=== PATIENT | female | born 1950 | race Caucasian/White ===

== ENCOUNTER 2020-06-22 09:36 | Outpatient (REF) | payer MEDICARE, SELFPAY | END 2020-06-22 09:37 | disposition home or self-care (01) | LOC: HO.LAB 09:36 | PROVIDERS: Visit Provider Internal Medicine | DX: Z20.828 Contact with and (suspected) exposure to other viral communicable diseases (principal) | CPT/HCPCS: C9803; U0003 ==

== ENCOUNTER → 2020-07-02 13:27 | Outpatient (BNVA) | payer MEDICARE, SELFPAY | PROVIDERS: PCP Internal Medicine; Visit Provider Hospitalist | DX: J40 Bronchitis, not specified as acute or chronic (principal); Z79.51 Long term (current) use of inhaled steroids | CPT/HCPCS: 99212 ==

== ENCOUNTER 2020-08-13 09:45 | Outpatient (REF) | payer MEDICARE, SELFPAY | END 2020-08-13 09:46 | disposition home or self-care (01) | LOC: HO.LAB 09:45 | PROVIDERS: Visit Provider Internal Medicine | DX: Z20.822 Contact with and (suspected) exposure to COVID-19 (principal) | CPT/HCPCS: 36415; C9803; U0003 ==

== ENCOUNTER 2020-09-19 10:23 | Outpatient (REF) | payer MEDICARE, SELFPAY ==
--- NOTE | ~2020-09-19 | XR_ITS ---
EXAMINATION: XR CHEST CLINICAL INFORMATION: Bronchitis. COMPARISON: None TECHNIQUE: 2 views of the chest were obtained. FINDINGS: Kyphotic positioning and low lung volumes limit evaluation. The lungs are clear. The heart and mediastinal structures are unremarkable. Surgical clips overlie the left axilla. XR/XR chest 2V IMPRESSION: No acute cardiopulmonary process.
[2020-09-19 12:39] LABS: MANUAL DIFF FLAG NO
[2020-09-19 12:42] LABS: Basophils Absolute Auto 0.1 X10*3/uL (0.0-0.2); Basophils Percent Auto 1.3 % (0-2); Eosinophils Absolute Auto 0.2 X10*3/uL (0.0-0.4); Eosinophils Percent Auto 2.6 % (0-4); Hematocrit 48.2 % (37-47); Hemoglobin 15.2 g/dl (12.0-16.0); Imm Gran Abs Auto 0.02 X10*3/uL (0.00-0.03); Imm Gran Pct Auto 0.3 % (0.0-0.4); Lymphocytes Absolute Auto 1.3 X10*3/uL (1.2-4.9); Lymphocytes Percent Auto 20.8 % (20-40); Mean Corpuscular HGB Conc 31.5 g/dl (31.0-35.0); Mean Corpuscular Hemoglobin 29.4 pg (27.0-33.0); Mean Corpuscular Volume 93.2 fL (80-98); Mean Platelet Volume 11.6 fL (9.4-12.3); Monocytes Absolute Auto 0.5 X10*3/uL (0.1-1.2); Monocytes Percent Auto 8.7 % (2-11); Neutrophils Absolute Auto 4.1 X10*3/uL (2.0-8.3); Neutrophils Percent Auto 66.3 % (45-73); Platelet Count 284 X10*3/uL (160-400); Red Blood Count 5.17 X10*6/uL (4.20-5.50); Red Cell Distribution Width 14.9 % (11.0-16.0); White Blood Count 6.2 X10*3/uL (4.8-10.8)
[2020-09-19 13:25] LABS: B Type Natriuretic Peptide 62 pg/mL (<100)
[2020-09-19 13:26] LABS: Anion Gap 14 (12-20); Blood Urea Nitrogen 20 mg/dL (9-16); Calcium 9.6 mg/dL (8.4-10.2); Carbon Dioxide 31 mmol/L (22-29); Chloride 103 mmol/L (96-108); Estimated Glomerular Filt Rate > 60; Glucose Random 96 mg/dL (60-115); Potassium 4.1 mmol/L (3.3-5.1); Sodium 144 mmol/L (135-145)
[2020-09-19 14:21] LABS: Erythrocyte Sedimentation Rate 7 MM/HR (0-20)
== END 2020-09-19 10:24 | disposition home or self-care (01) ==
LOC: HO.LAB 10:23
PROVIDERS: PCP Internal Medicine; Visit Provider Hospitalist
DX: J45.41 Moderate persistent asthma with (acute) exacerbation (principal); R60.0 Localized edema; R13.10 Dysphagia, unspecified; Z79.899 Other long term (current) drug therapy
CPT/HCPCS: 36415; 71046; 80048; 83880; 85025; 85652; 87070; 87205; 99212

== ENCOUNTER → 2020-10-31 10:42 | Outpatient (BNVA) | payer MEDICARE, SELFPAY | PROVIDERS: PCP Internal Medicine; Visit Provider Hospitalist | DX: R60.0 Localized edema (principal); J45.41 Moderate persistent asthma with (acute) exacerbation | CPT/HCPCS: 99212 ==

== ENCOUNTER → 2021-01-03 09:03 | Outpatient (BNVA) | payer MEDICARE, SELFPAY | PROVIDERS: PCP Internal Medicine; Visit Provider Hospitalist | DX: J45.41 Moderate persistent asthma with (acute) exacerbation (principal); J40 Bronchitis, not specified as acute or chronic; R91.8 Other nonspecific abnormal finding of lung field | CPT/HCPCS: 99212 ==

== ENCOUNTER → 2021-01-31 09:09 | Outpatient (BNVA) | payer MEDICARE, SELFPAY | PROVIDERS: PCP Internal Medicine; Visit Provider Hospitalist | DX: J40 Bronchitis, not specified as acute or chronic (principal); J45.41 Moderate persistent asthma with (acute) exacerbation; I25.10 Atherosclerotic heart disease of native coronary artery without angina pectoris; I25.84 Coronary atherosclerosis due to calcified coronary lesion | CPT/HCPCS: 99212 ==

== ENCOUNTER 2021-02-13 | Outpatient (REF) | payer MEDICARE, SELFPAY | END 2021-02-13 00:01 | disposition home or self-care (01) | LOC: HO.LNP | PROVIDERS: Visit Provider Hospitalist | DX: J40 Bronchitis, not specified as acute or chronic (principal) | CPT/HCPCS: 87070; 87205 ==

== ENCOUNTER 2021-02-14 11:15 | Outpatient (REF) | payer MEDICARE, SELFPAY | END 2021-02-14 11:16 | disposition home or self-care (01) | LOC: HO.LNP 11:15 | PROVIDERS: Visit Provider Hospitalist | DX: Z13.89 Encounter for screening for other disorder (principal) ==

== ENCOUNTER → 2021-05-08 12:52 | Outpatient (BNVA) | payer MEDICARE, SELFPAY | PROVIDERS: PCP Internal Medicine; Visit Provider Hospitalist | DX: J45.41 Moderate persistent asthma with (acute) exacerbation (principal); R91.8 Other nonspecific abnormal finding of lung field; J70.1 Chronic and other pulmonary manifestations due to radiation; I25.10 Atherosclerotic heart disease of native coronary artery without angina pectoris; I25.84 Coronary atherosclerosis due to calcified coronary lesion | CPT/HCPCS: 99212 ==

== ENCOUNTER 2022-01-12 10:12 | Outpatient (REF) | payer MEDICARE, SELFPAY ==
[2022-01-12 10:30] LABS: MANUAL DIFF FLAG NO
[2022-01-12 10:49] LABS: Basophils Absolute Auto 0.1 X10*3/uL (0.0-0.2); Eosinophils Absolute Auto 0.2 X10*3/uL (0.0-0.4); Eosinophils Percent Auto 2.1 % (0-4); Hematocrit 49.6 % (37.0-47.0); Hemoglobin 15.4 g/dl (12.0-16.0); Imm Gran Abs Auto 0.04 X10*3/uL (0.00-0.03); Imm Gran Pct Auto 0.5 % (0.0-0.4); Lymphocytes Absolute Auto 1.3 X10*3/uL (1.2-4.9); Lymphocytes Percent Auto 15.5 % (20-40); Mean Corpuscular Hemoglobin 28.2 pg (27.0-33.0); Mean Corpuscular Volume 90.7 fL (80.0-98.0); Monocytes Absolute Auto 0.6 X10*3/uL (0.1-1.2); Monocytes Percent Auto 7.1 % (2-11); Neutrophils Absolute Auto 5.9 x10*3/uL (2.0-8.3); Neutrophils Percent Auto 73.8 % (45-73); Platelet Count 295 X10*3/uL (160-400); Red Blood Count 5.47 X10*6/uL (4.20-5.50); Red Cell Distribution Width 14.3 % (11.0-16.0)
[2022-01-12 11:15] LABS: Anion Gap 10 (12-20); Blood Urea Nitrogen 19 mg/dL (9-16); Calcium 9.5 mg/dL (8.4-10.2); Carbon Dioxide 31 mmol/L (22-29); Chloride 106 mmol/L (96-108); Estimated Glomerular Filt Rate > 60; Glucose Random 94 mg/dL (60-115); Potassium 4.5 mmol/L (3.3-5.1); Sodium 142 mmol/L (135-145)
[2022-01-12 11:31] LABS: Erythrocyte Sedimentation Rate 5 MM/HR (0-20)
== END 2022-01-12 10:13 | disposition home or self-care (01) ==
LOC: HO.LAB 10:12
PROVIDERS: Visit Provider Hospitalist
DX: J45.41 Moderate persistent asthma with (acute) exacerbation (principal); I25.10 Atherosclerotic heart disease of native coronary artery without angina pectoris; I25.84 Coronary atherosclerosis due to calcified coronary lesion; R91.8 Other nonspecific abnormal finding of lung field; J70.1 Chronic and other pulmonary manifestations due to radiation
CPT/HCPCS: 36415; 80048; 85025; 85652; 99212

== ENCOUNTER 2022-05-22 09:06 | Outpatient (REF) | payer MEDICARE, SELFPAY ==
--- NOTE | 2022-05-22 10:40 | PFT_ITS ---
FLOWS: FEV1 84% of predicted at 1.69 L. FVC 85% of predicted at 2.27 L. FEV1 to FVC ratio of 0.75. No bronchodilator response. LUNG VOLUMES: Total lung capacity 84% of predicted at 3.87 L. Residual volume 69% of predicted at 1.42 L. Slow vital capacity 95% of predicted at 2.44 L. Expiratory reserve volume 48% of predicted at 0.38 L. Diffusion capacity is normal. IMPRESSION: No obstructive or restrictive ventilatory defect. No bronchodilator response. Decreased expiratory reserve volume suggests extrathoracic restriction likely secondary to abdominal obesity. Jose Baxter MD AP/MODL / [id number]
== END 2022-05-22 09:07 | disposition home or self-care (01) ==
LOC: HO.RESP 09:06
PROVIDERS: PCP Internal Medicine; Visit Provider Hospitalist
DX: J45.41 Moderate persistent asthma with (acute) exacerbation (principal)
CPT/HCPCS: 94060; 94727; 94729

== ENCOUNTER → 2022-06-30 09:14 | Outpatient (BNVA) | payer MEDICARE, SELFPAY | PROVIDERS: PCP Internal Medicine; Visit Provider Hospitalist | DX: J45.41 Moderate persistent asthma with (acute) exacerbation (principal); J70.1 Chronic and other pulmonary manifestations due to radiation; R91.8 Other nonspecific abnormal finding of lung field; I25.10 Atherosclerotic heart disease of native coronary artery without angina pectoris; I25.84 Coronary atherosclerosis due to calcified coronary lesion | CPT/HCPCS: 99212 ==

== ENCOUNTER 2023-02-03 12:42 | Outpatient (RCR) | payer MEDICARE, OTHER, SELFPAY | END 2023-02-18 10:52 | disposition home or self-care (01) | LOC: HO.WCC 12:42 | PROVIDERS: Visit Provider Surgery | DX: S61.411A Laceration without foreign body of right hand, initial encounter (principal); I11.0 Hypertensive heart disease with heart failure; I50.9 Heart failure, unspecified; W54.8XXA Other contact with dog, initial encounter; Y93.9 Activity, unspecified; Y92.9 Unspecified place or not applicable; Y99.9 Unspecified external cause status; Z87.891 Personal history of nicotine dependence; Z85.3 Personal history of malignant neoplasm of breast; Z92.21 Personal history of antineoplastic chemotherapy; Z92.3 Personal history of irradiation; Z90.13 Acquired absence of bilateral breasts and nipples; Z79.899 Other long term (current) drug therapy | CPT/HCPCS: 11042; 99212 ==

== ENCOUNTER 2023-03-15 14:52 | Outpatient (REF) | payer MEDICARE, OTHER, SELFPAY ==
--- NOTE | ~2023-03-15 | XR_ITS ---
EXAMINATION: XR CHEST CLINICAL INFORMATION: Chronic and other pulmonary manifestations due to radiation COMPARISON: Previous chest CT December 2020 and chest x-ray September 2020 TECHNIQUE: 2 views of the chest were obtained. FINDINGS: The lung volumes are low. The cardiac and mediastinal contours are stable. The lungs are clear. No pleural effusion or pneumothorax. Degenerative changes of the spine. Surgical clips in the left axilla and lower neck. XR/XR chest 2V IMPRESSION: Low lung volumes. No evidence for acute disease in the chest.
[2023-03-15 15:48] LABS: MANUAL DIFF FLAG NO
[2023-03-15 16:20] LABS: Basophils Absolute Auto 0.1 X10*3/uL (0.0-0.2); Basophils Percent Auto 1.8 % (0-2); Eosinophils Absolute Auto 0.3 X10*3/uL (0.0-0.4); Eosinophils Percent Auto 4.7 % (0-4); Hemoglobin 15.2 g/dl (12.0-16.0); Imm Gran Abs Auto 0.02 X10*3/uL (0.00-0.03); Imm Gran Pct Auto 0.3 % (0.0-0.4); Lymphocytes Absolute Auto 1.5 X10*3/uL (1.2-4.9); Lymphocytes Percent Auto 21.4 % (20-40); Mean Corpuscular Hemoglobin 28.6 pg (27.0-33.0); Mean Corpuscular Volume 92.3 fL (80.0-98.0); Mean Platelet Volume 11.1 fL (9.4-12.3); Monocytes Absolute Auto 0.5 X10*3/uL (0.1-1.2); Monocytes Percent Auto 6.4 % (2-11); Neutrophils Absolute Auto 4.7 x10*3/uL (2.0-8.3); Neutrophils Percent Auto 65.4 % (45-73); Platelet Count 272 X10*3/uL (160-400); Red Blood Count 5.31 X10*6/uL (4.20-5.50); Red Cell Distribution Width 13.9 % (11.0-16.0); White Blood Count 7.2 X10*3/uL (4.8-10.8)
[2023-03-15 17:19] LABS: Erythrocyte Sedimentation Rate 8 MM/HR (0-20)
[2023-03-16 02:05] LABS: Anion Gap 11 (12-20); Blood Urea Nitrogen 26 mg/dL (9-16); Calcium 9.7 mg/dL (8.4-10.2); Carbon Dioxide 31 mmol/L (22-29); Chloride 105 mmol/L (96-108); Estimated Glomerular Filt Rate > 60; Glucose Random 90 mg/dL (60-115); Potassium 4.6 mmol/L (3.3-5.1); Sodium 142 mmol/L (135-145)
[2023-03-16 23:13] LABS: Immunoglobulin E 16 kU/L (<OR=114)
== END 2023-03-15 14:53 | disposition home or self-care (01) ==
LOC: HO.LAB 14:52
PROVIDERS: PCP Internal Medicine; Visit Provider Hospitalist
DX: J45.909 Unspecified asthma, uncomplicated (principal); J70.1 Chronic and other pulmonary manifestations due to radiation; J45.41 Moderate persistent asthma with (acute) exacerbation; I25.10 Atherosclerotic heart disease of native coronary artery without angina pectoris; R91.8 Other nonspecific abnormal finding of lung field
CPT/HCPCS: 36415; 71046; 80048; 82785; 85025; 85652; 86003; 99212

== ENCOUNTER 2023-03-15 14:52 | Outpatient (AMB) | payer MEDICARE, OTHER, SELFPAY ==
[2023-03-15 14:59] VITALS: PULSE 77; O2SAT 95; BMI 35.0
--- NOTE | 2023-03-15 14:59 | A.OFFVIS_ITS ---
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 She has been doing very well. She had a good summer. More recently he started developing increasing chest tightness and shortness of breath. She has been using her rescue inhaler more often. She continues to use the Advair 500 Diskus in addition to the Spiriva hand inhaler as prescribed. She has been working outside more is wondering if she is having allergies. At some point she did have allergy testing and was relatively negative except for significant allergies to formaldehyde. She had been using Xopenex both in the HFA formulation and also in the nebulized formulation. This is mainly because albuterol caused significant tremulousness and palpitations. However, her Xopenex HFA is not being covered. A prior approval as necessary. Will ty ProAir 1 puff as needed to see if we are able to minimize side effects from the short-acting beta agonist. Otherwise, if she does not tolerate this will send for Xopenex HFA. 07/02/2020 the patient is here for pulmonary follow-up visit. She has been complaining worsening cough and shortness of breath for the last week. She was concerned she was tested for COVID which was negative. Positive sick contacts in the home. She started developing worsening chest congestion. She did try [id number] cough syrup without any significant improvement. Today she does have a productive cough and does have wheezing on examination. No crackles that I could appreciate. Therefore will treated for asthmatic bronchitis. The patient is no better in 48 hours she has to get a chest x-ray. She will start using the nebulizer. 01/03/2021 the patient is here for pulmonary follow-up visit. Overall she is doing a little better. Although, she continues to have a significant cough. Still congested in nature. [id number] severity. She has been using her nebulizer with good response. She also continues with her maintenance inhalers. We did again review her chest x-ray for demonstrating decreased lung volumes and some increased interstitial markings. At this point based on her ongoing symptoms in her abnormal chest x-ray I will request a CT scan of the chest. In the meantime I will also start azithromycin 3 times a week for chron ic bronchitis. 01/31/2021 the patient is here for pulmonary follow-up visit. Overall she is feeling a little bit better. She still has a cough. The cough seems to be less congested. Lwlv-fz-lirlgkmp severity. She did start the azithromycin 3 times a week. Seems like is helping some although she still has a cough. We did review her CT scan of the chest demonstrating some interstitial changes to the right middle lobe and also right lower lobe. She also has numerous pulmonary nodules some calcified and some noncalcified. Has significant calcifications of the coronary arteries. However, her CT scan now officially read this was based on my review. Therefore waiting for the official CT scan report. In the meantime the patient will continue the azithromycin. I did encourage her to follow-up with her primary care doctor and consider a stress test and also cardiac risk modifications. In regards to the bronchoscopy will hold off at this point. 05/08/2021 the patient is here for a pulmonary follow-up visit. Overall she is feeling a lot better. Her respiratory status is improved. Her cough is improved. She continues with respiratory therapy. She did discontinue the azithromycin she did not need any more. We did again review her CT scan of the chest demonstrating some calcified pulmonary nodules consistent with granulomas , and some minimal interstitial lung disease. No need for follow-up at this time. The patient did undergo a knee replacement is doing well from that. She will continue with current respiratory therapy at this time. Will follow up in a year's time. 01/12/2022 the patient is here for a pulmonary follow-up visit. Patient recently was evaluated by her new primary care doctor because of worsening shortness of breath and lower extremity edema. She did have an echocardiogram per report demonstrating evidence of diastolic dysfunction. I do not have the echocardiogram at this time. Switch switched over to Lasix which appears to be more effective in her very since. Regards of her respiratory status the patient is stable currently on Advair. I reassured that the Advair will not interfere with cardiac condition. She is also using Singulair and Spiriva. On examination she was noted to be tachycardic. She does have up an appointment with Cardiology but now to March. 06/30/2022 the patient is here for a pulmonary follow-up visit. She still complains of dyspnea on exertion. She is working closely with Cardiology regarding her diastolic dysfunction tachycardia. She has been using her diuretics. Although she does not use her compression stockings. She still has significant lower extremity edema. She continues use the Advair and Spiriva with good effect. The patient did have pulmonary function studies which were reassuring. No definitive obstructive nor restrictive ventilatory defects noted. Although she does have a continue avid to the expiratory limb suggesting obstructive physiology. She is responding well to the Advair and also the Spiriva. She rarely uses a rescue inhaler. 03/15/2023 the patient is here for pulmonary follow-up visit. The patient is not feeling any better. She has been struggling with her asthma now for several months. She has been on maximum respiratory therapy with only partial resolution of her symptoms. She is having daily wheezing requiring her inhaler again multiple times today. She has been using nebulizer. She is very reassuring to her therapy. The patient on exam does have significant wheezing will need to go back on prednisone. Since she has maximized on a respiratory therapy we did talk about having her undergo blood work in addition to allergy testing. We will be assessing for any evidence of any eosinophilia or elevated IgE to suggest allergic asthma. If the patient does have an allergic asthma phenotype then we will start her on a regimen of biologic therapy. The patient is agreeable to this. [facility] Medical History (Updated 03/15/23 @ 15:24 by Leo Cano MD) Abnormality of lung on CXR Asthma Asthma-COPD overlap syndrome Bronchitis Coronary artery calcification Lower extremity edema Pulmonary nodules Radiation fibrosis of lung Social History (Updated 01/12/22 @ 09:39 by DAYAMI Sparks) Patient Tobacco Use Status: Former Tobacco user Tobacco use type: Cigarette Years Smoked: 20 years Review of Systems Const Denies night sweats ENT Denies change in voice, Denies lip swelling, Denies mouth pain, Reports nasal congestion, Reports nasal discharge and Denies tongue swelling Card Denies chest pain, Reports leg edema, Denies dyspnea and Reports dyspnea on exertion Resp Denies chest congestion, Reports cough, Denies dyspnea, Reports dyspnea on exertion and Reports wheezing GI Denies abdominal pain Musc Denies no additional complaints, Reports myalgias and Reports arthralgias Neuro Denies Neuro-related abnormal movements Psych Denies no additional complaints Vance/Lymph Denies easy bleeding and Denies lymphadenopathy Aller/Immun Denies lip swelling, Denies tongue swelling and Reports wheezing Physical Exam Vital Signs: Last Vital Signs Pulse 77 03/15/23 14:59 Pulse Ox 95 03/15/23 14:59 Oxygen Delivery Method Room Air 03/15/23 14:59 BMI result Body Mass Index 35.0 Const General: alert Neck Neck: Yes normal visual inspection, Yes full ROM and Yes no lymphadenopathy Chest Chest palpation & inspection: normal inspection of the chest Resp Effort & Inspection: prolonged expiratory phase Auscultation: wheezes and diminished lung sounds Cardio Rate: tachycardic Rhythm: regular rhythm Heart sounds: S1 normal heart sound present and S2 normal heart sound present GI Palpation (GI): Soft to palpation and nontender Auscultation: normal bowel sounds Skin General skin exam: rashes and/or lesions noted Extrem General: Yes edema Assessment & Plan Assessment & Plan (1) Asthma: Code(s): J45.909 - Unspecified asthma, uncomplicated Qualifiers: Asthma complication type: with acute exacerbation Asthma persistence: persistent Asthma severity: moderate Qualified Code(s): J45.41 - Moderate persistent asthma with (acute) exacerbation (2) Coronary artery calcification: Code(s): I25.10 - Atherosclerotic heart disease of [place] coronary artery without angina pectoris; I25.84 - Coronary atherosclerosis due to calcified coronary lesion (3) Pulmonary nodules: Code(s): R91.8 - Other nonspecific abnormal finding of lung field (4) Radiation fibrosis of lung: Code(s): J70.1 - Chronic and other pulmonary manifestations due to radiation Plan continue Advair HFA and Spiriva restart prednisone taper CXR Bloodwork/allergy testing will benefit from Biologic therapy if allergy labs are elevated FACUNDO as needed Continue Singulair diuresis as tolerated F/U 2-3 months Orders: Orders Basic Metabolic Panel 03/15/23 J30.9 - Allergic rhinitis, unspecified, J45.909 - Unspecified asthma, uncomplicated Rast Allergen 03/15/23 J30.9 - Allergic rhinitis, unspecified, J45.909 - Unspecified asthma, uncomplicated Complete Blood Count Auto Diff 03/15/23 J30.9 - Allergic rhinitis, unspecified, J45.909 - Unspecified asthma, uncomplicated Erythrocyte Sedimentation Rate 03/15/23 J30.9 - Allergic rhinitis, unspecified, J45.909 - Unspecified asthma, uncomplicated Immunoglobulin E 03/15/23 J30.9 - Allergic rhinitis, unspecified, J45.909 - Unspecified asthma, uncomplicated XR chest 2V 03/15/23 J70.1 - Chronic and other pulmonary manifestations due to radiation Medications: New albuterol sulfate 2.5 mg (3 mL) inhalation BID 30 days 180 mL 11RF J44.9 - Chronic obstructive pulmonary disease, unspecified prednisone PO daily; Take 2 tabs daily x 5 days, then 1 tablet daily x 5 days 10 days 15 tabs 0RF Coding Level of Care Code Est Pt Level 4 (38878) Diagnoses Asthma J45.41 Asthma complication type: with acute exacerbation Asthma persistence: persistent Asthma severity: moderate Coronary artery calcification I25.10; I25.84 Pulmonary nodules R91.8 Radiation fibrosis of lung J70.1 Time Spent (min) 19
== END 2023-03-15 15:27 | disposition home or self-care (01) ==
PROVIDERS: PCP Internal Medicine; Visit Provider Hospitalist
DX: J45.41 Moderate persistent asthma with (acute) exacerbation (principal); I25.10 Atherosclerotic heart disease of native coronary artery without angina pectoris; I25.84 Coronary atherosclerosis due to calcified coronary lesion; R91.8 Other nonspecific abnormal finding of lung field; J70.1 Chronic and other pulmonary manifestations due to radiation
CPT/HCPCS: 99214

== ENCOUNTER 2023-05-18 09:47 | Outpatient (AMB) | payer MEDICARE, OTHER, SELFPAY ==
[2023-05-18 09:47] VITALS: BMI 35.9
--- NOTE | 2023-05-18 09:47 | A.OFFVIS_ITS ---
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 She has been doing very well. She had a good summer. More recently he started developing increasing chest tightness and shortness of breath. She has been using her rescue inhaler more often. She continues to use the Advair 500 Diskus in addition to the Spiriva hand inhaler as prescribed. She has been working outside more is wondering if she is having allergies. At some point she did have allergy testing and was relatively negative except for significant allergies to formaldehyde. She had been using Xopenex both in the HFA formulation and also in the nebulized formulation. This is mainly because albuterol caused significant tremulousness and palpitations. However, her Xopenex HFA is not being covered. A prior approval as necessary. Will ty ProAir 1 puff as needed to see if we are able to minimize side effects from the short-acting beta agonist. Otherwise, if she does not tolerate this will send for Xopenex HFA. 01/12/2022 the patient is here for a pulmonary follow-up visit. Patient recently was evaluated by her new primary care doctor because of worsening shortness of breath and lower extremity edema. She did have an echocardiogram per report demonstrating evidence of diastolic dysfunction. I do not have the echocardiogram at this time. Switch switched over to Lasix which appears to be more effective in her very since. Regards of her respiratory status the patient is stable currently on Advair. I reassured that the Advair will not interfere with cardiac condition. She is also using Singulair and Spiriva. On examination she was noted to be tachycardic. She does have up an appointment with Cardiology but now to [place]. 06/30/2022 the patient is here for a pulmonary follow-up visit. She still complains of dyspnea on exertion. She is working closely with Cardiology regarding her diastolic dysfunction tachycardia. She has been using her diuretics. Although she does not use her compression stockings. She still has significant lower extremity edema. She continues use the Advair and Spiriva with good effect. The patient did have pulmonary function studies which were reassuring. No definitive obstructive nor restrictive ventilatory defects noted. Although she does have a continue avid to the expiratory limb suggesting obstructive physiology. She is responding well to the Advair and also the Spiriva. She rarely uses a rescue inhaler. 03/15/2023 the patient is here for pulmonary follow-up visit. The patient is not feeling any better. She has been struggling with her asthma now for several months. She has been on maximum respiratory therapy with only partial resolution of her symptoms. She is having daily wheezing requiring her inhaler again multiple times today. She has been using nebulizer. She is very reassuring to her therapy. The patient on exam does have significant wheezing will need to go back on prednisone. Since she has maximized on a respiratory therapy we did talk about having her undergo blood work in addition to allergy testing. We will be assessing for any evidence of any eosinophilia or elevated IgE to suggest allergic asthma. If the patient does have an allergic asthma phenotype then we will start her on a regimen of biologic therapy. The patient is agreeable to this. 05/18/2023 the patient has a telehealth visit today. The patient is having her time with her asthma. She is maximizing her respiratory inhalers with only partial resolution of the symptoms. She continues use her nebulizer on a daily basis. The last time with summer she did require prednisone. The patient would like to hold off on additional prednisone at this time due to adverse effects. She continues on her allergy medication. We did review the allergy testing. Her IgE is normal , although, her eosinophil percentage is elevated and her absolute is high normal. 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 She will benefit from biologics at this point. Will request Fasenra be started in order to control her asthma symptoms. [facility] Medical History (Updated 05/18/23 @ 21:00 by Leo Cano MD) Asthma-COPD overlap syndrome Radiation fibrosis of lung Pulmonary nodules Coronary artery calcification Abnormality of lung on CXR Lower extremity edema Asthma Bronchitis Social History (Updated 01/12/22 @ 09:39 by DAYAMI Sparks) Patient Tobacco Use Status: Former Tobacco user Tobacco use type: Cigarette Years Smoked: 20 years Review of Systems Const Denies night sweats ENT Denies change in voice, Denies lip swelling, Denies mouth pain, Reports nasal congestion, Reports nasal discharge and Denies tongue swelling Card Denies chest pain, Reports leg edema, Denies dyspnea and Reports dyspnea on exertion Resp Denies chest congestion, Reports cough, Denies dyspnea, Reports dyspnea on exertion and Reports wheezing GI Denies abdominal pain Musc Denies no additional complaints, Reports myalgias and Reports arthralgias Neuro Denies Neuro-related abnormal movements Psych Denies no additional complaints Vance/Lymph Denies easy bleeding and Denies lymphadenopathy Aller/Immun Denies lip swelling, Denies tongue swelling and Reports wheezing Physical Exam Vital Signs: BMI result Body Mass Index 35.9 Const General: comfortable Orientation/consciousness: patient oriented x3 Resp Effort & Inspection: able to speak in complete sentences Neuro General: patient oriented x3 Assessment & Plan Assessment & Plan (1) Asthma: Code(s): J45.909 - Unspecified asthma, uncomplicated Qualifiers: Asthma complication type: uncomplicated Asthma persistence: persistent Asthma severity: severe Qualified Code(s): J45.50 - Severe persistent asthma, uncomplicated (2) Coronary artery calcification: Code(s): I25.10 - Atherosclerotic heart disease of [place] coronary artery without angina pectoris; I25.84 - Coronary atherosclerosis due to calcified coronary lesion (3) Pulmonary nodules: Code(s): R91.8 - Other nonspecific abnormal finding of lung field (4) Radiation fibrosis of lung: Code(s): J70.1 - Chronic and other pulmonary manifestations due to radiation Plan continue Advair HFA and Spiriva consider prednisone taper will benefit from Fasenra FACUNDO as needed Continue Singulair diuresis as tolerated F/U 2-3 months Medications: Changed From albuterol sulfate 90 mcg/actuation 2 inhalations inhalation Q6H 30 days PRN 18 grams 12RF shortness of breath or wheezing J44.9 - Chronic obstructive pulmonary disease, unspecified To albuterol sulfate 90 mcg/actuation 2 inhalations inhalation Q6H 90 days PRN 3 ea 3RF shortness of breath or wheezing J44.9 - Chronic obstructive pulmonary d isease, unspecified Refilled fluticasone propion-salmeterol 230-21 mcg/actuation 2 puffs inhalation BID 90 days 3 ea 3RF tiotropium bromide (Spiriva with HandiHaler) 1 cap inhalation DAILY 90 caps 3RF montelukast 10 mg PO DAILY 90 tabs 3RF Telehealth Telehealth Location of provider rendering services: practice address Location of patient: address on file Patient Identification confirmed using: Name, : Yes Telehealth method: voice only Patient verbally consented to treatment: Yes Patient verbally consented to billing insurance company: Yes Patient informed of any privacy concerns related to visit: Yes Coding Level of Care Code Tele Est Pt Level 4 (52119) Diagnoses Severe persistent asthma without complication J45.50 Asthma complication type: uncomplicated Asthma persistence: persistent Asthma severity: severe Coronary artery calcification I25.10; I25.84 Pulmonary nodules R91.8 Radiation fibrosis of lung J70.1 Time Spent (min) 15
== END 2023-05-18 10:21 | disposition home or self-care (01) ==
LOC: HO.HPS 09:47
PROVIDERS: PCP Internal Medicine; Visit Provider Hospitalist
DX: J45.50 Severe persistent asthma, uncomplicated (principal); R91.8 Other nonspecific abnormal finding of lung field; J70.1 Chronic and other pulmonary manifestations due to radiation; I25.84 Coronary atherosclerosis due to calcified coronary lesion
CPT/HCPCS: 99442

== ENCOUNTER → 2023-05-18 09:47 | Outpatient (BNVA) | payer MEDICARE, OTHER, SELFPAY | PROVIDERS: PCP Internal Medicine; Visit Provider Hospitalist | DX: J45.909 Unspecified asthma, uncomplicated (principal); J30.9 Allergic rhinitis, unspecified; J70.1 Chronic and other pulmonary manifestations due to radiation; J44.9 Chronic obstructive pulmonary disease, unspecified ==

== ENCOUNTER 2023-08-25 15:47 | Emergency (ER) | payer MEDICARE, OTHER, SELFPAY ==
--- NOTE | ~2023-08-25 | XR_ITS ---
EXAMINATION: XR CHEST CLINICAL INFORMATION: Shortness of breath COMPARISON: 03/15/2023 TECHNIQUE: 2 views of the chest were obtained. FINDINGS: Chronic elevation left hemidiaphragm. Lungs grossly clear. Old right-sided rib fractures noted. Clips in the left axilla noted. Left supraclavicular clips noted as well. Heart and pulmonary vessels are normal. XR/XR chest 2V IMPRESSION: No active disease.
--- NOTE | 2023-08-25 16:05 | ED.SOB ---
HPI - SOB/Dyspnea General Chief Complaint: Dyspnea Stated Complaint: Dr Cano told patient low O2 Related Data Home Medications Medication Instructions Recorded Confirmed diclofenac sodium 75 mg 75 mg PO BID 07/02/20 01/05/21 tablet,delayed release duloxetine 60 mg capsule,delayed 60 mg PO DAILY 07/02/20 01/05/21 release lovastatin 40 mg tablet 40 mg PO DAILY 07/02/20 01/05/21 tramadol 50 mg tablet 50 mg PO Q6H PRN pain 07/02/20 01/05/21 lansoprazole 30 mg capsule,delayed 30 mg PO DAILY 10/31/20 01/05/21 release dorzolamide-timolol (PF) 2 %-0.5 % 1 drp ophthalmic (eye) BID 01/03/21 01/05/21 eye drops in a dropperette trazodone 100 mg tablet mg PO 01/03/21 01/05/21 gabapentin 300 mg capsule mg PO 01/12/22 01/05/21 tafluprost (PF) 0.0015 % eye drops drp ophthalmic (eye) DAILY PRN 01/12/22 in a dropperette (Zioptan (PF)) furosemide 40 mg tablet 40 mg PO DAILY 05/18/23 losartan 25 mg tablet 25 mg PO DAILY 05/18/23 nebulizers 05/18/23 Previous Rx's Medication Instructions Recorded levalbuterol tartrate 45 2 inh inhalation Q6H PRN shortness 06/30/22 mcg/actuation aerosol inhaler of breath or wheezing 30 days #15 grams albuterol sulfate 2.5 mg/3 mL 2.5 mg (3 mL) inhalation BID 30 03/15/23 (0.083 %) solution for nebulization days #180 mL albuterol sulfate 90 mcg/actuation 2 inh inhalation Q6H PRN shortness 05/18/23 aerosol inhaler of breath or wheezing 90 days #3 ea fluticasone propionate 230 2 puff inhalation BID 90 days #3 ea 05/18/23 mcg-salmeterol 21 mcg/actuation HFA inhaler montelukast 10 mg tablet 10 mg PO DAILY #90 tabs 05/18/23 tiotropium bromide 18 mcg capsule 1 cap inhalation DAILY #90 caps 05/18/23 with inhalation device (Spiriva with HandiHaler) benralizumab 30 mg/mL subcutaneous See Rx Instructions subcut Q4W 12 05/24/23 syringe (Fasenra) months #9 mL prednisone 10 mg tablet See Rx Instructions PO DAILY 18 08/26/23 days #63 tabs Allergies Allergy/AdvReac Type Severity Reaction Status Date / Time cephalexin [From KEFLEX] Allergy Severe EXTREME Verified 08/25/23 16:04 HIVES formaldehyde Allergy Severe hives Verified 08/25/23 16:04 levofloxacin [From LEVAQUIN] Allergy Severe SEVERE Verified 08/25/23 16:04 MUSCLE PAIN Sulfa (Sulfonamide AdvReac Severe Hives Verified 08/25/23 16:04 Antibiotics) PPD Allergy Severe Swollen Uncoded 05/18/23 09:48 PMFSH Past Medical History Medical History (Updated 09/02/23 @ 18:33 by KARINA Briggs) Asthma-COPD overlap syndrome Radiation fibrosis of lung Pulmonary nodules Coronary artery calcification Abnormality of lung on CXR Lower extremity edema Asthma Bronchitis Social History Social History (Updated 01/12/22 @ 09:39 by DAYAMI Sparks) Patient Tobacco Use Status: Former Tobacco user Tobacco use type: Cigarette Years Smoked: 20 years Advance Directives: No Advance Directives Information Provided: No Physical Exam Vital Signs: Vital Signs: Last Vital Signs Temp 98.4 F 08/25/23 16:06 Pulse 82 08/25/23 16:26 Resp 16 08/25/23 16:26 BP 153/56 H 08/25/23 16:06 Pulse Ox 95 08/25/23 16:06 O2 Del Method Room Air 08/25/23 16:06 BMI result Body Mass Index 37.7 Course Course Course Narrative: RME: 73year-old F w/ PMHx Asthma-COPD, lymphedema, CHF, presenting to the ED c/o low O2 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 Admits currently has PNA, Dx at last week currently on Augmentin (& also finished Z-roman) & reports LE edema. denies CP, fever +end exp wheeze appreciated. 92% in triage > drops to 90% just with talking. +LE edema EKG, Labs, CXR, Viral testing ordered Full HPI, ROS and PE to be performed by primary ED provider. Medications Administered Discontinued Medications Generic Name Dose Route Start Last Admin Trade Name Freq PRN Reason Stop Dose Admin Albuterol/Ipratropium 3 ml 08/25/23 16:21 08/25/23 16:25 Albuterol/Iprat 2.5/0.5mg 3 Ml Ampul.Neb INHALE 08/25/23 16:22 3 ml ONCE ONE Administration Medical Decision Making Lab Data 08/25/23 16:54 08/25/23 16:54 Labs: Lab Results 08/25/23 Range/Units 16:54 WBC 6.6 (4.8-10.8) X10*3/uL RBC 4.96 (4.20-5.50) X10*6/uL Hgb 14.5 (12.0-16.0) g/dl Hct 45.7 (37.0-47.0) % MCV 92.1 (80.0-98.0) fL MCH 29.2 (27.0-33.0) pg MCHC 31.7 (31.0-35.0) g/dl RDW 13.1 (11.0-16.0) % Plt Count 279 (160-400) X10*3/uL MPV 10.9 (9.4-12.3) fL Immature Gran % (Auto) 0.3 (0.0-0.4) % Neut % (Auto) 61.4 (45-73) % Lymph % (Auto) 21.1 (20-40) % [place] % (Auto) 8.6 (2-11) % Eos % (Auto) 7.4 H (0-4) % Baso % (Auto) 1.2 (0-2) % Lymph # (Auto) 1.4 (1.2-4.9) X10*3/uL [place] # (Auto) 0.6 (0.1-1.2) X10*3/uL Eos # (Auto) 0.5 H (0.0-0.4) X10*3/uL Baso # (Auto) 0.1 (0.0-0.2) X10*3/uL Abs Immat Gran (auto) 0.02 (0.00-0.03) X10*3/uL Absolute Neuts (auto) 4.1 (2.0-8.3) x10*3/uL Absolute Nucleated RBC 0.000 (0.0-0.012) X10*3/uL Nucleated RBC % (auto) 0.0 (0.0-0.2) /100WBC PT 11.7 (11.1-13.3) SEC INR 1.0 (0.9-1.1) Sodium 144 (135-145) mmol/L Potassium 3.9 (3.3-5.1) mmol/L Chloride 103 (96-108) mmol/L Carbon Dioxide 32 H (22-29) mmol/L Anion Gap 13 (12-20) BUN 17 H (9-16) mg/dL Creatinine 0.68 (0.5-1.4) mg/dL Estim Creat Clear Calc 77.7 Estimated GFR > 60 Random Glucose 103 (60-115) mg/dL Calcium 9.5 (8.4-10.2) mg/dL Magnesium 2.1 (1.6-2.6) mg/dL Total Bilirubin 0.3 (0.0-1.0) mg/dL Direct Bilirubin 0.2 (0.0-0.5) mg/dL AST 19 (5-31) U/L ALT 14 (0-31) U/L Alkaline Phosphatase 111 (39-117) U/L Troponin I High Sens 10.0 (<3.5-17.0) ng/L B-Natriuretic Peptide 52 (<100) pg/mL Total Protein 6.5 (6.5-8.0) g/dL Albumin 3.7 (3.5-5.0) g/dL COVID-19 (AAMIR) Negative (Negative) COVID-19 Clin Com See Note Influenza Type A (JOHN) Negative (Negative) Influenza Type B (JOHN) Negative (Negative) Influenza A & B Note See Note Discharge Plan Discharge Clinical Impression: Dyspnea Patient Disposition: Left W/O Completing Treatment Prescriptions: No Action Fasenra 30 mg/mL syringe See Rx Instructions subcut Q4W 360 Days Qty: 9 0RF Rx Instructions: loading dose: 30mg SC q4 weeks x 3 , then 30mg [id number] prednisone 10 mg tablet See Rx Instructions PO DAILY 18 Days Qty: 63 0RF Rx Instructions: PO daily; Take 6 tabs daily x 3 days, then 5 tabs x 3 days, then 4 tabs x 3 days, then 3 tabs x 3 days, then 2 tabs daily x 3 days, then 1 tab x 3 days to complete. albuterol sulfate 2.5 mg /3 mL (0.083 %) solution for nebulization 2.5 mg continuous nebulization ONCE Qty: 3 0RF trazodone 100 mg tablet PO dorzolamide-timolol (PF) 2-0.5 % dropperette 1 drp ophthalmic (eye) BID diclofenac sodium 75 mg tablet,delayed release (DR/EC) 75 mg PO BID duloxetine 60 mg capsule,delayed release(DR/EC) 60 mg PO DAILY lovastatin 40 mg tablet 40 mg PO DAILY tramadol 50 mg tablet 50 mg PO Q6H PRN (Reason: pain) gabapentin 300 mg capsule PO lansoprazole 30 mg capsule,delayed release(DR/EC) 30 mg PO DAILY Zioptan (PF) 0.0015 % dropperette ophthalmic (eye) DAILY PRN levalbuterol tartrate 45 mcg/actuation HFA aerosol inhaler 2 inh inhalation Q6H PRN (Reason: shortness of breath or wheezing) 30 Days Qty: 15 11RF furosemide 40 mg tablet 40 mg PO DAILY (DME) nebulizers Misc See Rx Instructions .ROUTE Rx Instructions: As directed losartan 25 mg tablet 25 mg PO DAILY fluticasone propion-salmeterol 230-21 mcg/actuation HFA aerosol inhaler 2 puff inhalation BID 90 Days Qty: 3 3RF tiotropium bromide [Spiriva with HandiHaler] 18 mcg capsule, w/inhalation device 1 cap inhalation DAILY Qty: 90 3RF montelukast 10 mg tablet 10 mg PO DAILY Qty: 90 3RF albuterol sulfate 90 mcg/actuation HFA aerosol inhaler 2 inh inhalation Q6H PRN (Reason: shortness of breath or wheezing) 90 Days Qty: 3 3RF albuterol sulfate 2.5 mg /3 mL (0.083 %) solution for nebulization 2.5 mg inhalation BID 30 Days Qty: 180 11RF Discharge Date/Time: 08/25/23 20:53
[2023-08-25 16:06] VITALS: BP 153/56; PULSE 89; RESP 18; TEMP 36.9; O2SAT 95; BMI 37.7
--- NOTE | 2023-08-25 16:06 | ECG_ITS ---
Test Reason : SOB Blood Pressure : / mmHG Vent. Rate : 092 BPM Atrial Rate : 092 BPM P-R Int : 158 ms QRS Dur : 086 ms QT Int : 362 ms P-R-T Axes : 026 -13 041 degrees QTc Int : 447 ms Normal sinus rhythm Normal ECG No previous ECGs available Referred By: Amy Lyn Electronically Signed By:Kamari Hughes
[2023-08-25] MEDS: Albuterol/Iprat 2.5/0.5MG 3 ML AMPUL.NEB INHALE (16:25)
[2023-08-25 16:26] VITALS: PULSE 82; RESP 16; O2SAT 94
[2023-08-25 17:03] LABS: MANUAL DIFF FLAG NO
[2023-08-25 17:05] LABS: Basophils Absolute Auto 0.1 X10*3/uL (0.0-0.2); Basophils Percent Auto 1.2 % (0-2); Eosinophils Absolute Auto 0.5 X10*3/uL (0.0-0.4); Eosinophils Percent Auto 7.4 % (0-4); Hematocrit 45.7 % (37.0-47.0); Hemoglobin 14.5 g/dl (12.0-16.0); Imm Gran Abs Auto 0.02 X10*3/uL (0.00-0.03); Imm Gran Pct Auto 0.3 % (0.0-0.4); Lymphocytes Absolute Auto 1.4 X10*3/uL (1.2-4.9); Lymphocytes Percent Auto 21.1 % (20-40); Mean Corpuscular HGB Conc 31.7 g/dl (31.0-35.0); Mean Corpuscular Hemoglobin 29.2 pg (27.0-33.0); Mean Corpuscular Volume 92.1 fL (80.0-98.0); Mean Platelet Volume 10.9 fL (9.4-12.3); Monocytes Absolute Auto 0.6 X10*3/uL (0.1-1.2); Monocytes Percent Auto 8.6 % (2-11); Neutrophils Absolute Auto 4.1 x10*3/uL (2.0-8.3); Neutrophils Percent Auto 61.4 % (45-73); Platelet Count 279 X10*3/uL (160-400); Red Blood Count 4.96 X10*6/uL (4.20-5.50); Red Cell Distribution Width 13.1 % (11.0-16.0); White Blood Count 6.6 X10*3/uL (4.8-10.8)
[2023-08-25 17:17] LABS: Prothrombin Time 11.7 SEC (11.1-13.3)
[2023-08-25 17:22] LABS: Alanine Aminotransferase 14 U/L (0-31); Albumin Level 3.7 g/dL (3.5-5.0); Alkaline Phosphatase 111 U/L (39-117); Anion Gap 13 (12-20); Aspartate Amino Transferase 19 U/L (5-31); Bilirubin Direct 0.2 mg/dL (0.0-0.5); Bilirubin Total 0.3 mg/dL (0.0-1.0); Blood Urea Nitrogen 17 mg/dL (9-16); Calcium 9.5 mg/dL (8.4-10.2); Carbon Dioxide 32 mmol/L (22-29); Chloride 103 mmol/L (96-108); Creatinine Clr Calc Pharmacy 77.7; Estimated Glomerular Filt Rate > 60; Glucose Random 103 mg/dL (60-115); Magnesium 2.1 mg/dL (1.6-2.6); Potassium 3.9 mmol/L (3.3-5.1); Sodium 144 mmol/L (135-145); Total Protein 6.5 g/dL (6.5-8.0)
[2023-08-25 17:25] LABS: B Type Natriuretic Peptide 52 pg/mL (<100)
[2023-08-25 17:28] LABS: IDNOW Serial# 08D9AD1C; IDNOW Serial# 152EDE1D; Influenza A Negative (Negative); Influenza B2 Negative (Negative)
[2023-08-25 17:29] LABS: COVID-19 Test Negative (Negative)
== END 2023-08-25 20:53 | disposition left against medical advice (07) ==
PROVIDERS: Physician Assistant; Emergency Provider Emergency Medicine
DX: R06.02 Shortness of breath (principal); R60.0 Localized edema; Z11.52 Encounter for screening for COVID-19; Z87.891 Personal history of nicotine dependence; Z79.899 Other long term (current) drug therapy
CPT/HCPCS: 36415; 71046; 80048; 80076; 83735; 83880; 84484; 85025; 85610; 87502; 87635; 93005; 94640; 99284

== ENCOUNTER → 2023-08-25 16:06 | Outpatient (BNV) | payer MEDICARE, OTHER, SELFPAY | PROVIDERS: Emergency Provider Emergency Medicine; Visit Provider Internal Medicine Cardiovascular Disease | DX: R06.02 Shortness of breath (principal) | CPT/HCPCS: 93010 ==

== ENCOUNTER 2023-09-15 09:46 | Outpatient (AMB) | payer MEDICARE, OTHER, SELFPAY ==
--- NOTE | 2023-09-15 09:49 | A.OFFVIS_ITS ---
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 She has been doing very well. She had a good summer. More recently he started developing increasing chest tightness and shortness of breath. She has been using her rescue inhaler more often. She continues to use the Advair 500 Diskus in addition to the Spiriva hand inhaler as prescribed. She has been working outside more is wondering if she is having allergies. At some point she did have allergy testing and was relatively negative except for significant allergies to formaldehyde. She had been using Xopenex both in the HFA formulation and also in the nebulized formulation. This is mainly because albuterol caused significant tremulousness and palpitations. However, her Xopenex HFA is not being covered. A prior approval as necessary. Will ty ProAir 1 puff as needed to see if we are able to minimize side effects from the short-acting beta agonist. Otherwise, if she does not tolerate this will send for Xopenex HFA. 03/15/2023 the patient is here for pulmon kevin follow-up visit. The patient is not feeling any better. She has been struggling with her asthma now for several months. She has been on maximum respiratory therapy with only partial resolution of her symptoms. She is having daily wheezing requiring her inhaler again multiple times today. She has been using nebulizer. She is very reassuring to her therapy. The patient on exam does have significant wheezing will need to go back on prednisone. Since she has maximized on a respiratory therapy we did talk about having her undergo blood work in addition to allergy testing. We will be assessing for any evidence of any eosinophilia or elevated IgE to suggest allergic asthma. If the patient does have an allergic asthma ph enotype then we will start her on a regimen of biologic therapy. The patient is agreeable to this. 05/18/2023 the patient has a telehealth visit today. The patient is having her time with her asthma. She is maximizing her respiratory inhalers with only partial resolution of the symptoms. She continues use her nebulizer on a daily basis. The last time with summer she did require prednisone. The patient would like to hold off on additional prednisone at this time due to adverse effects. She continues on her allergy medication. We did review the allergy testing. Her IgE is normal , although, her eosinophil percentage is elevated and her absolute is high normal. 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 She will benefit from biologics at this point. Will request Fasenra be started in order to control her asthma symptoms. 09/15/2023 the patient is here for a pulm onary follow-up visit. She still struggling with her breathing. Still having significant chest tightness and wheezing. She just completed a course of prednisone and also antibiotics. She does have significant eosinophilia. We did get her approved for Fasenra but is extremely expensive with a co-pay of 400 dollars. Therefore, she can not afford that. Will see if a different biologic may be a little more reasonable for her. In the meantime she does have chronic bronchitis. She is required frequent prednisone use. She is gained weight and has adverse effects from the prednisone. Therefore, will need to limit the amount of prednisone. We can go ahead and start Daliresp in the meantime to help her with her chronic bronchitis symptoms. She is also going to continue using the Advair and continue with Spiriva at this time. Try to avoid the prednisone possible. She does have significant wheezing though. We did review her last chest x-ray from a few months ago. She still has the persistent elevation of the left hemidiaphragm which is chronic. No other acute changes noted. [facility] Medical History (Updated 09/03/23 @ 00:01 by Gigi Perez) Asthma-COPD overlap syndrome Radiation fibrosis of lung Pulmonary nodules Coronary artery calcification Abnormality of lung on CXR Lower extremity edema Asthma Bronchitis Social History (Updated 01/12/22 @ 09:39 by DAYAMI Sparks) Patient Tobacco Use Status: Former Tobacco user Tobacco use type: Cigarette Years Smoked: 20 years Review of Systems Const Denies night sweats ENT Denies change in voice, Denies lip swelling, Denies mouth pain, Reports nasal congestion, Reports nasal discharge and Denies tongue swelling Card Denies chest pain, Reports leg edema, Denies dyspnea and Reports dyspnea on exertion Resp Denies chest congestion, Reports cough, Denies dyspnea, Reports dyspnea on exertion and Reports wheezing GI Denies abdominal pain Musc Denies no additional complaints, Reports myalgias and Reports arthralgias Neuro Denies Neuro-related abnormal movements Psych Denies no additional complaints Vance/Lymph Denies easy bleeding and Denies lymphadenopathy Aller/Immun Denies lip swelling, Denies tongue swelling and Reports wheezing Physical Exam Vital Signs: Last Vital Signs Pulse 83 09/15/23 09:50 Pulse Ox 94 09/15/23 09:50 Oxygen Delivery Method Room Air 09/15/23 09:50 BMI result Body Mass Index 37.7 Const General: alert Neck Neck: Yes normal visual inspection, Yes full ROM and Yes no lymphadenopathy Chest Chest palpation & inspection: normal inspection of the chest Resp Effort & Inspection: prolonged expiratory phase Auscultation: wheezes and diminished lung sounds Cardio Rate: tachycardic Rhythm: regular rhythm Heart sounds: S1 normal heart sound present and S2 normal heart sound present GI Palpation (GI): Soft to palpation and nontender Auscultation: normal bowel sounds Skin General skin exam: rashes and/or lesions noted Extrem General: Yes edema Assessment & Plan Assessment & Plan (1) Asthma: Code(s): J45.909 - Unspecified asthma, uncomplicated Qualifiers: Asthma complication type: uncomplicated Asthma persistence: persistent Asthma severity: severe Qualified Code(s): J45.50 - Severe persistent asthma, uncomplicated (2) Coronary artery calcification: Code(s): I25.10 - Atherosclerotic heart disease of [place] coronary artery without angina pectoris; I25.84 - Coronary atherosclerosis due to calcified coronary lesion (3) Pulmonary nodules: Code(s): R91.8 - Other nonspecific abnormal finding of lung field (4) Radiation fibrosis of lung: Code(s): J70.1 - Chronic and other pulmonary manifestations due to radiation (5) Asthma-COPD overlap syndrome: Code(s): J44.9 - Chronic obstructive pulmonary disease, unspecified Plan continue Advair HFA and Spiriva start Daliresp 500mcg consider prednisone taper will benefit from IL5 inhibitor. Fasenra copay is high. Will try Nucala FACUNDO as needed Continue Singulair diuresis as tolerated F/U 2-3 months Medications: New prednisone PO daily; Take 6 tabs daily x 3 days, then 5 tabs x 3 days, then 4 tabs x 3 days, then 3 tabs x 3 days, then 2 tabs daily x 3 days, then 1 tab x 3 days to complete. 18 days 63 tabs 0RF roflumilast (Daliresp) 500 mcg PO DAILY 30 days 30 tabs 11RF Coding Level of Care Code Est Pt Level 4 (10763) Diagnoses Severe persistent asthma without complication J45.50 Asthma complication type: uncomplicated Asthma persistence: persistent Asthma severity: severe Coronary artery calcification I25.10; I25.84 Pulmonary nodules R91.8 Radiation fibrosis of lung J70.1 Asthma-COPD overlap syndrome J44.9 Time Spent (min) 17
[2023-09-15 09:50] VITALS: PULSE 83; O2SAT 94; BMI 37.7
== END 2023-09-15 10:11 | disposition home or self-care (01) ==
PROVIDERS: PCP Internal Medicine; Visit Provider Hospitalist
DX: J45.50 Severe persistent asthma, uncomplicated (principal); I25.10 Atherosclerotic heart disease of native coronary artery without angina pectoris; I25.84 Coronary atherosclerosis due to calcified coronary lesion; R91.8 Other nonspecific abnormal finding of lung field; J70.1 Chronic and other pulmonary manifestations due to radiation; J44.9 Chronic obstructive pulmonary disease, unspecified
CPT/HCPCS: 99214

== ENCOUNTER → 2023-09-15 09:46 | Outpatient (BNVA) | payer MEDICARE, OTHER, SELFPAY | PROVIDERS: PCP Internal Medicine; Visit Provider Hospitalist | DX: J45.50 Severe persistent asthma, uncomplicated (principal); J70.1 Chronic and other pulmonary manifestations due to radiation; J44.9 Chronic obstructive pulmonary disease, unspecified; R91.8 Other nonspecific abnormal finding of lung field; I25.10 Atherosclerotic heart disease of native coronary artery without angina pectoris; I25.84 Coronary atherosclerosis due to calcified coronary lesion | CPT/HCPCS: 99212 ==

== ENCOUNTER 2023-11-11 10:04 | Outpatient (AMB) | payer MEDICARE, SELFPAY ==
[2023-11-11 10:10] VITALS: PULSE 90; O2SAT 93; BMI 36.7
--- NOTE | 2023-11-11 10:10 | MHC.OFFVIS ---
Intake Vital Signs 11/11/23 10:10 Height 5 ft Weight 188 lb BMI 36.7 Pulse 90 Pulse Source Pulse Oximeter Pulse Oximetry (%) 93 Oxygen Delivery Method Room Air Intake Visit Reasons: copd Plate Maker Required: No Allergies cephalexin [From KEFLEX] Allergy (Severe, Verified 11/11/23 10:12) EXTREME HIVES formaldehyde Allergy (Severe, Verified 11/11/23 10:12) hives levofloxacin [From LEVAQUIN] Allergy (Severe, Verified 11/11/23 10:12) SEVERE MUSCLE PAIN Sulfa (Sulfonamide Antibiotics) Adverse Reaction (Severe, Verified 11/11/23 10:12) Hives PPD Allergy (Severe, Uncoded 11/11/23 10:12) Swollen HPI HPI Comments History of Present Illness Details The patient is a 73y/o woman with a history of moderate persistent asthma in underlying allergic rhinitis. She has been doing very well. She had a good summer. More recently he started developing increasing chest tightness and shortness of breath. She has been using her rescue inhaler more often. She continues to use the Advair 500 Diskus in addition to the Spiriva hand inhaler as prescribed. She has been working outside more is wondering if she is having allergies. At some point she did have allergy testing and was relatively negative except for significant allergies to formaldehyde. She had been using Xopenex both in the HFA formulation and also in the nebulized formulation. This is mainly because albuterol caused significant tremulousness and palpitations. However, her Xopenex HFA is not being covered. A prior approval as necessary. Will ty ProAir 1 puff as needed to see if we are able to minimize side effects from the short-acting beta agonist. Otherwise, if she does not tolerate this will send for Xopenex HFA. 03/15/2023 the patient is here for pulmonary follow-up visit. The patient is not feeling any better. She has been struggling with her asthma now for several months. She has been on maximum respiratory therapy with only partial resolution of her symptoms. She is having daily wheezing requiring her inhaler again multiple times today. She has been using nebulizer. She is very reassuring to her therapy. The patient on exam does have significant wheezing will need to go back on prednisone. Since she has maximized on a respiratory therapy we did talk about having her undergo blood work in addition to allergy testing. We will be assessing for any evidence of any eosinophilia or elevated IgE to suggest allergic asthma. If the patient does have an allergic asthma phenotype then we will start her on a regimen of biologic therapy. The patient is agreeable to this. 05/18/2023 the patient has a telehealth visit today. The patient is having her time with her asthma. She is maximizing her respiratory inhalers with only partial resolution of the symptoms. She continues use her nebulizer on a daily basis. The last time with summer she did require prednisone. The patient would like to hold off on additional prednisone at this time due to adverse effects. She continues on her allergy medication. We did review the allergy testing. Her IgE is normal , although, her eosinophil percentage is elevated and her absolute is high normal. 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 She will benefit from biologics at this point. Will request Fasenra be started in order to control her asthma symptoms. 09/15/2023 the patient is here for a pulmonary follow-up visit. She still struggling with her breathing. Still having significant chest tightness and wheezing. She just completed a course of prednisone and also antibiotics. She does have significant eosinophilia. We did get her approved for Fasenra but is extremely expensive with a co-pay of 400 dollars. Therefore, she can not afford that. Will see if a different biologic may be a little more reasonable for her. In the meantime she does have chronic bronchitis. She is required frequent prednisone use. She is gained weight and has adverse effects from the prednisone. Therefore, will need to limit the amount of prednisone. We can go ahead and start Daliresp in the meantime to help her with her chronic bronchitis symptoms. She is also going to continue using the Advair and continue with Spiriva at this time. Try to avoid the prednisone possible. She does have significant wheezing though. We did review her last chest x-ray from a few months ago. She still has the persistent elevation of the left hemidiaphragm which is chronic. No other acute changes noted. 11/11/2023 the patient is here for a pulmonary follow-up visit. She did start the Fasenra. Is finally covered. Although after taking the medication she started feeling significant flu-like symptoms and headaches. She does not feeling well. He has been taking Tylenol as needed. She is also developed a cough which is been congested in nature. As far as her respiratory exam she does have better already which is reassuring. I do believe she does have a component of allergies and also has a component of nasal congestion postnasal drip and potential sinusitis. The patient also did start the Daliresp wrap may be also causing her to have some adverse effects. She is also using her Advair and Spiriva. The patient will go ahead and start fluticasone nasal spray mucinous help her with the chest congestion and nasal congestion. If she has not better if she worsens she can also take a course of Augmentin for sinusitis. Hopefully she feels better she does not need the antibiotics her. If her symptoms persist with headaches in just flu-like symptoms constitutional symptoms she can also consider decreasing Daliresp to every other day to see if that would help her symptom relief. I am hopeful also that she gets used to the Fasenra. She will get her next dose in about 2 and half weeks. COUNTS INCLUDE 234 BEDS AT THE [facility] Medical History (Updated 09/03/23 @ 00:01 by Gigi Perez) Asthma-COPD overlap syndrome Radiation fibrosis of lung Pulmonary nodules Coronary artery calcification Abnormality of lung on CXR Lower extremity edema Asthma Bronchitis Social History (Updated 01/12/22 @ 09:39 by Amy Amezcua [facility]) Patient Tobacco Use Status: Former Tobacco user Tobacco use type: Cigarette Years Smoked: 20 years Review of Systems Const Reports body aches, Reports fatigue, Reports headache(s) and Denies night sweats ENT Denies change in voice, Reports headache(s), Denies lip swelling, Denies mouth pain, Reports nasal congestion, Reports nasal discharge, Reports post nasal drip and Denies tongue swelling Card Denies chest pain, Denies dyspnea and Reports dyspnea on exertion Resp Reports chest congestion, Reports cough, Denies dyspnea, Reports dyspnea on exertion and Denies wheezing GI Denies abdominal pain Musc Denies no additional complaints, Reports myalgias and Reports arthralgias Neuro Denies Neuro-related abnormal movements and Reports headache(s) Psych Denies no additional complaints Endo Reports fatigue Vance/Lymph Denies easy bleeding and Denies lymphadenopathy Aller/Immun Denies lip swelling, Denies tongue swelling and Denies wheezing Physical Exam Vital Signs: Last Vital Signs Pulse 90 11/11/23 10:10 Pulse Ox 93 11/11/23 10:10 Oxygen Delivery Method Room Air 11/11/23 10:10 BMI result Body Mass Index 36.7 Const General: alert Neck Neck: Yes normal visual inspection, Yes full ROM and Yes no lymphadenopathy Chest Chest palpation & inspection: normal inspection of the chest Resp Effort & Inspection: normal respiratory effort and No prolonged expiratory phase Auscultation: no wheezes and diminished lung sounds Cardio Rate: tachycardic Rhythm: regular rhythm Heart sounds: S1 normal heart sound present and S2 normal heart sound present GI Palpation (GI): Soft to palpation and nontender Auscultation: normal bowel sounds Skin General skin exam: rashes and/or lesions noted Extrem General: Yes edema Assessment & Plan Assessment & Plan (1) Asthma: Code(s): J45.909 - Unspecified asthma, uncomplicated Qualifiers: Asthma complication type: uncomplicated Asthma persistence: persistent Asthma severity: severe Qualified Code(s): J45.50 - Severe persistent asthma, uncomplicated (2) Coronary artery calcification: Code(s): I25.10 - Atherosclerotic heart disease of [place] coronary artery without angina pectoris; I25.84 - Coronary atherosclerosis due to calcified coronary lesion (3) Pulmonary nodules: Code(s): R91.8 - Other nonspecific abnormal finding of lung field (4) Radiation fibrosis of lung: Code(s): J70.1 - Chronic and other pulmonary manifestations due to radiation (5) Asthma-COPD overlap syndrome: Code(s): J44.9 - Chronic obstructive pulmonary disease, unspecified Plan continue Advair HFA and Spiriva continue Daliresp 500mcg, consider decreasing if continued symptomatic will benefit from IL5 inhibitor. Fasenra is covered. Did have significant flu like symptoms. Taking tylenol FACUNDO as needed Continue Singulair start Fluticasone start Augmentin if worsens diuresis as tolerated F/U 3-4 months Medications: New amoxicillin-pot clavulanate 875-125 mg 1 tab PO BID 20 tabs 0RF 10 days fluticasone propionate 50 mcg/actuation 2 sprays intranasal DAILY 15.8 mL 11RF 30 days J31.0 - Chronic rhinitis Coding Level of Care Code Est Pt Level 4 (57604) Diagnoses Severe persistent asthma without complication J45.50 Asthma complication type: uncomplicated Asthma persistence: persistent Asthma severity: severe Coronary artery calcification I25.10; I25.84 Pulmonary nodules R91.8 Radiation fibrosis of lung J70.1 Asthma-COPD overlap syndrome J44.9 Time Spent (min) 16
== END 2023-11-11 10:26 | disposition home or self-care (01) ==
PROVIDERS: PCP Internal Medicine; Visit Provider Hospitalist
DX: J45.50 Severe persistent asthma, uncomplicated (principal); I25.10 Atherosclerotic heart disease of native coronary artery without angina pectoris; I25.84 Coronary atherosclerosis due to calcified coronary lesion; R91.8 Other nonspecific abnormal finding of lung field; J70.1 Chronic and other pulmonary manifestations due to radiation; J44.9 Chronic obstructive pulmonary disease, unspecified
CPT/HCPCS: 99214

== ENCOUNTER → 2023-11-11 10:04 | Outpatient (BNVA) | payer MEDICARE, SELFPAY | PROVIDERS: PCP Internal Medicine; Visit Provider Hospitalist | DX: J45.50 Severe persistent asthma, uncomplicated (principal); J70.1 Chronic and other pulmonary manifestations due to radiation; J44.9 Chronic obstructive pulmonary disease, unspecified; I25.10 Atherosclerotic heart disease of native coronary artery without angina pectoris; I25.84 Coronary atherosclerosis due to calcified coronary lesion; R91.8 Other nonspecific abnormal finding of lung field | CPT/HCPCS: 99212 ==

== ENCOUNTER 2024-05-03 10:57 | Outpatient (AMB) | payer MEDICARE, OTHER, SELFPAY ==
[2024-05-03 11:18] VITALS: BP 128/60; PULSE 70; O2SAT 96; BMI 31.9
--- NOTE | 2024-05-03 11:18 | MHC.OFFVIS ---
Vital Signs 05/03/24 11:18 Height 5 ft Weight 163 lb 2.273 oz BMI 31.9 BP 128/60 Blood Pressure Location Rt brachial Position Sitting Pulse 70 Pulse Source Pulse Oximeter Pulse Oximetry (%) 96 Oxygen Delivery Method Room Air Intake Visit Reasons: copd Channel Development Manager Required: No Allergies cephalexin [From KEFLEX] Allergy (Severe, Verified 05/03/24 11:20) EXTREME HIVES formaldehyde Allergy (Severe, Verified 05/03/24 11:20) hives levofloxacin [From LEVAQUIN] Allergy (Severe, Verified 05/03/24 11:20) SEVERE MUSCLE PAIN Sulfa (Sulfonamide Antibiotics) Adverse Reaction (Severe, Verified 05/03/24 11:20) Hives PPD Allergy (Severe, Uncoded 05/03/24 11:20) Swollen HPI Comments Details: The patient is a 73y/o woman with a history of moderate persistent asthma in underlying allergic rhinitis. She has been doing very well. She had a good summer. More recently he started developing increasing chest tightness and shortness of breath. She has been using her rescue inhaler more often. She continues to use the Advair 500 Diskus in addition to the Spiriva hand inhaler as prescribed. She has been working outside more is wondering if she is having allergies. At some point she did have allergy testing and was relatively negative except for significant allergies to formaldehyde. She had been using Xopenex both in the HFA formulation and also in the nebulized formulation. This is mainly because albuterol caused significant tremulousness and palpitations. However, her Xopenex HFA is not being covered. A prior approval as necessary. Will ty ProAir 1 puff as needed to see if we are able to minimize side effects from the short-acting beta agonist. Otherwise, if she does not tolerate this will send for Xopenex HFA. 03/15/2023 the patient is here for pulmonary follow-up visit. The patient is not feeling any better. She has been struggling with her asthma now for several months. She has been on maximum respiratory therapy with only partial resolution of her symptoms. She is having daily wheezing requiring her inhaler again multiple times today. She has been using nebulizer. She is very reassuring to her therapy. The patient on exam does have significant wheezing will need to go back on prednisone. Since she has maximized on a respiratory therapy we did talk about having her undergo blood work in addition to allergy testing. We will be assessing for any evidence of any eosinophilia or elevated IgE to suggest allergic asthma. If the patient does have an allergic asthma phenotype then we will start her on a regimen of biologic therapy. The patient is agreeable to this. 05/18/2023 the patient has a telehealth visit today. The patient is having her time with her asthma. She is maximizing her respiratory inhalers with only partial resolution of the symptoms. She continues use her nebulizer on a daily basis. The last time with summer she did require prednisone. The patient would like to hold off on additional prednisone at this time due to adverse effects. She continues on her allergy medication. We did review the allergy testing. Her IgE is normal , although, her eosinophil percentage is elevated and her absolute is high normal. 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 She will benefit from biologics at this point. Will request Fasenra be started in order to control her asthma symptoms. 09/15/2023 the patient is here for a pulmonary follow-up visit. She still struggling with her breathing. Still having significant chest tightness and wheezing. She just completed a course of prednisone and also antibiotics. She does have significant eosinophilia. We did get her approved for Fasenra but is extremely expensive with a co-pay of 400 dollars. Therefore, she can not afford that. Will see if a different biologic may be a little more reasonable for her. In the meantime she does have chronic bronchitis. She is required frequent prednisone use. She is gained weight and has adverse effects from the prednisone. Therefore, will need to limit the amount of prednisone. We can go ahead and start Daliresp in the meantime to help her with her chronic bronchitis symptoms. She is also going to continue using the Advair and continue with Spiriva at this time. Try to avoid the prednisone possible. She does have significant wheezing though. We did review her last chest x-ray from a few months ago. She still has the persistent elevation of the left hemidiaphragm which is chronic. No other acute changes noted. 11/11/2023 the patient is here for a pulmonary follow-up visit. She did start the Fasenra. Is finally covered. Although after taking the medication she started feeling significant flu-like symptoms and headaches. She does not feeling well. He has been taking Tylenol as needed. She is also developed a cough which is been congested in nature. As far as her respiratory exam she does have better already which is reassuring. I do believe she does have a component of allergies and also has a component of nasal congestion postnasal drip and potential sinusitis. The patient also did start the Daliresp wrap may be also causing her to have some adverse effects. She is also using her Advair and Spiriva. The patient will go ahead and start fluticasone nasal spray mucinous help her with the chest congestion and nasal congestion. If she has not better if she worsens she can also take a course of Augmentin for sinusitis. Hopefully she feels better she does not need the antibiotics her. If her symptoms persist with headaches in just flu-like symptoms constitutional symptoms she can also consider decreasing Daliresp to every other day to see if that would help her symptom relief. I am hopeful also that she gets used to the Fasenra. She will get her next dose in about 2 and half weeks. 05/03/2024 the patient is here for a pulmonary follow-up visit. The patient was diagnosed with cancer of the brain. She underwent extensive surgery at [facility]. After she did develop sepsis and was readmitted to the hospital. I do not have the details for that. During the hospitalization though she did have a CT scan of the chest. She is scheduled now to have a repeat CT scan to follow-up with some changes. Will request a CT scan at this time. At least from a respiratory status she is doing lot better. The Fasenra injections have been affecting beneficial. She continues on inhalers and also continues on the Daliresp. Will go ahead and continue her respiratory medications specially while she did not with this new issue. The patient did finish radiation therapy and will be following up with Oncology regarding any additional therapies. [facility] Medical History (Updated 05/03/24 @ 22:20 by Leo Cano MD) Brain cancer Asthma-COPD overlap syndrome Radiation fibrosis of lung Pulmonary nodules Coronary artery calcification Abnormality of lung on CXR Lower extremity edema Asthma Bronchitis Social History (Updated 01/12/22 @ 09:39 by DAYAMI Sparks) Patient Tobacco Use Status: Former Tobacco user Tobacco use type: Cigarette Years Smoked: 20 years Review of Systems Const Reports body aches, Reports fatigue, Reports headache(s), Denies night sweats and Reports weight loss ENT Denies change in voice, Reports headache(s), Denies lip swelling, Denies mouth pain, Reports nasal congestion, Reports nasal discharge, Reports post nasal drip and Denies tongue swelling Card Denies chest pain, Denies dyspnea and Reports dyspnea on exertion Resp Reports chest congestion, Reports cough, Denies dyspnea, Reports dyspnea on exertion and Denies wheezing GI Denies abdominal pain Musc Denies no additional complaints, Reports myalgias and Reports arthralgias Neuro Reports as per HPI, Denies Neuro-related abnormal movements and Reports headache(s) Psych Denies no additional complaints Endo Reports fatigue Vance/Lymph Denies easy bleeding and Denies lymphadenopathy Aller/Immun Denies lip swelling, Denies tongue swelling and Denies wheezing Physical Exam Vital Signs: Last Vital Signs Pulse 70 05/03/24 11:18 BP 128/60 05/03/24 11:18 Pulse Ox 96 05/03/24 11:18 Oxygen Delivery Method Room Air 05/03/24 11:18 BMI result Body Mass Index 31.9 Const General: alert HEENT Head: Yes scalp lesion Neck Neck: Yes normal visual inspection, Yes full ROM and Yes no lymphadenopathy Chest Chest palpation & inspection: normal inspection of the chest Resp Effort & Inspection: normal respiratory effort and No prolonged expiratory phase Auscultation: clear to auscultation bilaterally and no wheezes Cardio Rate: tachycardic Rhythm: regular rhythm Heart sounds: S1 normal heart sound present and S2 normal heart sound present GI Palpation (GI): Soft to palpation and nontender Auscultation: normal bowel sounds Skin General skin exam: rashes and/or lesions noted Extrem General: Yes edema Assessment & Plan Assessment & Plan (1) Asthma: Code(s): J45.909 - Unspecified asthma, uncomplicated Category: Medical Qualifiers: Asthma complication type: uncomplicated Asthma persistence: persistent Asthma severity: severe Qualified Code(s): J45.50 - Severe persistent asthma, uncomplicated (2) Coronary artery calcification: Code(s): I25.10 - Atherosclerotic heart disease of [place] coronary artery without angina pectoris; I25.84 - Coronary atherosclerosis due to calcified coronary lesion Category: Medical (3) Pulmonary nodules: Code(s): R91.8 - Other nonspecific abnormal finding of lung field Category: Medical (4) Radiation fibrosis of lung: Code(s): J70.1 - Chronic and other pulmonary manifestations due to radiation Category: Medical (5) Asthma-COPD overlap syndrome: Code(s): J44.9 - Chronic obstructive pulmonary disease, unspecified Category: Medical (6) Brain cancer: Code(s): C71.9 - Malignant neoplasm of brain, unspecified Category: Medical Qualifiers: Malignant neoplasm of brain location: unspecified location Qualified Code(s): C71.9 - Malignant neoplasm of brain, unspecified Plan continue Advair HFA and Spiriva continue Daliresp 500mcg, consider decreasing if continued symptomatic continue Fasenra FACUNDO as needed Continue Singulair diuresis as tolerated F/U 3-4 months Coding Level of Care Code Est Pt Level 4 (03186) Diagnoses Severe persistent asthma without complication J45.50 Asthma complication type: uncomplicated Asthma persistence: persistent Asthma severity: severe Coronary artery calcification I25.10; I25.84 Pulmonary nodules R91.8 Radiation fibrosis of lung J70.1 Asthma-COPD overlap syndrome J44.9 Malignant neoplasm of brain, unspecified location C71.9 Malignant neoplasm of brain location: unspecified location Time Spent (min) 16
== END 2024-05-03 11:44 | disposition home or self-care (01) ==
PROVIDERS: PCP Internal Medicine; Visit Provider Hospitalist
DX: J45.50 Severe persistent asthma, uncomplicated (principal); I25.10 Atherosclerotic heart disease of native coronary artery without angina pectoris; I25.84 Coronary atherosclerosis due to calcified coronary lesion; R91.8 Other nonspecific abnormal finding of lung field; J70.1 Chronic and other pulmonary manifestations due to radiation; J44.9 Chronic obstructive pulmonary disease, unspecified; C71.9 Malignant neoplasm of brain, unspecified
CPT/HCPCS: 99214

== ENCOUNTER → 2024-05-03 10:57 | Outpatient (BNVA) | payer MEDICARE, OTHER, SELFPAY | PROVIDERS: PCP Internal Medicine; Visit Provider Hospitalist | DX: J45.50 Severe persistent asthma, uncomplicated (principal); J70.1 Chronic and other pulmonary manifestations due to radiation; J44.9 Chronic obstructive pulmonary disease, unspecified; I25.10 Atherosclerotic heart disease of native coronary artery without angina pectoris; I25.84 Coronary atherosclerosis due to calcified coronary lesion; R91.8 Other nonspecific abnormal finding of lung field; C71.9 Malignant neoplasm of brain, unspecified | CPT/HCPCS: 99212 ==

== ENCOUNTER 2024-11-01 11:32 | Outpatient (AMB) | payer MEDICARE, OTHER, SELFPAY ==
[2024-11-01 11:35] VITALS: BP 120/72; PULSE 73; O2SAT 95
--- NOTE | 2024-11-01 11:35 | MHC.OFFVIS ---
Vital Signs 11/01/24 11:35 Height 5 ft BMI Reason not done Patient refused/unable BP 120/72 Blood Pressure Location Rt brachial Position Sitting Pulse 73 Pulse Source Pulse Oximeter Pulse Oximetry (%) 95 Oxygen Delivery Method Room Air Intake Visit Reasons: COPD Allergies cephalexin [From KEFLEX] Allergy (Severe, Verified 11/01/24 11:40) EXTREME HIVES formaldehyde Allergy (Severe, Verified 11/01/24 11:40) hives levofloxacin [From LEVAQUIN] Allergy (Severe, Verified 11/01/24 11:40) SEVERE MUSCLE PAIN Sulfa (Sulfonamide Antibiotics) Adverse Reaction (Severe, Verified 11/01/24 11:40) Hives PPD Allergy (Severe, Uncoded 11/01/24 11:40) Swollen HPI Comments Details: The patient is a 74y/o woman with a history of moderate persistent asthma in underlying allergic rhinitis. She has been doing very well. She had a good summer. More recently he started developing increasing chest tightness and shortness of breath. She has been using her rescue inhaler more often. She continues to use the Advair 500 Diskus in addition to the Spiriva hand inhaler as prescribed. She has been working outside more is wondering if she is having allergies. At some point she did have allergy testing and was relatively negative except for significant allergies to formaldehyde. She had been using Xopenex both in the HFA formulation and also in the nebulized formulation. This is mainly because albuterol caused significant tremulousness and palpitations. However, her Xopenex HFA is not being covered. A prior approval as necessary. Will ty ProAir 1 puff as needed to see if we are able to minimize side effects from the short-acting beta agonist. Otherwise, if she does not tolerate this will send for Xopenex HFA. 03/15/2023 the patient is here for pulmonary follow-up visit. The patient is not feeling any better. She has been struggling with her asthma now for several months. She has been on maximum respiratory therapy with only partial resolution of her symptoms. She is having daily wheezing requiring her inhaler again multiple times today. She has been using nebulizer. She is very reassuring to her therapy. The patient on exam does have significant wheezing will need to go back on prednisone. Since she has maximized on a respiratory therapy we did talk about having her undergo blood work in addition to allergy testing. We will be assessing for any evidence of any eosinophilia or elevated IgE to suggest allergic asthma. If the patient does have an allergic asthma phenotype then we will start her on a regimen of biologic therapy. The patient is agreeable to this. 05/18/2023 the patient has a telehealth visit today. The patient is having her time with her asthma. She is maximizing her respiratory inhalers with only partial resolution of the symptoms. She continues use her nebulizer on a daily basis. The last time with summer she did require prednisone. The patient would like to hold off on additional prednisone at this time due to adverse effects. She continues on her allergy medication. We did review the allergy testing. Her IgE is normal , although, her eosinophil percentage is elevated and her absolute is high normal. 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 She will benefit from biologics at this point. Will request Fasenra be started in order to control her asthma symptoms. 09/15/2023 the patient is here for a pulmonary follow-up visit. She still struggling with her breathing. Still having significant chest tightness and wheezing. She just completed a course of prednisone and also antibiotics. She does have significant eosinophilia. We did get her approved for Fasenra but is extremely expensive with a co-pay of 400 dollars. Therefore, she can not afford that. Will see if a different biologic may be a little more reasonable for her. In the meantime she does have chronic bronchitis. She is required frequent prednisone use. She is gained weight and has adverse effects from the prednisone. Therefore, will need to limit the amount of prednisone. We can go ahead and start Daliresp in the meantime to help her with her chronic bronchitis symptoms. She is also going to continue using the Advair and continue with Spiriva at this time. Try to avoid the prednisone possible. She does have significant wheezing though. We did review her last chest x-ray from a few months ago. She still has the persistent elevation of the left hemidiaphragm which is chronic. No other acute changes noted. 11/11/2023 the patient is here for a pulmonary follow-up visit. She did start the Fasenra. Is finally covered. Although after taking the medication she started feeling significant flu-like symptoms and headaches. She does not feeling well. He has been taking Tylenol as needed. She is also developed a cough which is been congested in nature. As far as her respiratory exam she does have better already which is reassuring. I do believe she does have a component of allergies and also has a component of nasal congestion postnasal drip and potential sinusitis. The patient also did start the Daliresp wrap may be also causing her to have some adverse effects. She is also using her Advair and Spiriva. The patient will go ahead and start fluticasone nasal spray mucinous help her with the chest congestion and nasal congestion. If she has not better if she worsens she can also take a course of Augmentin for sinusitis. Hopefully she feels better she does not need the antibiotics her. If her symptoms persist with headaches in just flu-like symptoms constitutional symptoms she can also consider decreasing Daliresp to every other day to see if that would help her symptom relief. I am hopeful also that she gets used to the Fasenra. She will get her next dose in about 2 and half weeks. 05/03/2024 the patient is here for a pulmonary follow-up visit. The patient was diagnosed with cancer of the brain. She underwent extensive surgery at [facility]. After she did develop sepsis and was readmitted to the hospital. I do not have the details for that. During the hospitalization though she did have a CT scan of the chest. She is scheduled now to have a repeat CT scan to follow-up with some changes. Will request a CT scan at this time. At least from a respiratory status she is doing lot better. The Fasenra injections have been affecting beneficial. She continues on inhalers and also continues on the Daliresp. Will go ahead and continue her respiratory medications specially while she did not with this new issue. The patient did finish radiation therapy and will be following up with Oncology regarding any additional therapies. 11/01/2024 the patient is here for pulmonary follow-up visit. The patient overall has been doing well. She has had multiple MRIs for her history of brain cancer and it has been negative for any recurrence which is extremely reassuring. She is very happy about that. The patient is currently cancer free. In addition to that she continues use her respiratory therapy with good effect. We had to switch her Advair HFA 2 Wixela because of insurance purposes and she is tolerating. She does not have to use it twice a day though she can cut it down to once a day at this time. She does respond well to Spiriva. She is also using Daliresp which does help her. At this time because of her significant medical ailments she rather just stay on her regimen that works for her. Therefore she will continue with current respiratory therapy. She does continue on the Fasenra injections every 8 weeks which appeared to be significantly effective for her as well. She has not been on prednisone whatsoever. Will plan to follow-up in a year's time if she has any issues prior to that she will call for an earlier assessment. [facility] Medical History (Updated 05/03/24 @ 22:20 by Leo Cano MD) Brain cancer Asthma-COPD overlap syndrome Radiation fibrosis of lung Pulmonary nodules Coronary artery calcification Abnormality of lung on CXR Lower extremity edema Asthma Bronchitis Social History Patient Tobacco Use Status: Former Tobacco user Tobacco use type: Cigarette Years Smoked: 20 years Review of Systems Const Reports fatigue, Reports headache(s), Denies night sweats and Reports weight loss ENT Denies change in voice, Reports headache(s), Denies lip swelling, Denies mouth pain, Reports nasal congestion, Reports nasal discharge, Reports post nasal drip and Denies tongue swelling Card Denies chest pain, Denies dyspnea and Reports dyspnea on exertion Resp Denies chest congestion, Reports cough, Denies dyspnea, Reports dyspnea on exertion and Denies wheezing GI Denies abdominal pain Musc Denies no additional complaints, Reports myalgias and Reports arthralgias Neuro Reports as per HPI, Denies Neuro-related abnormal movements and Reports headache(s) Psych Denies no additional complaints Endo Reports fatigue Vance/Lymph Denies easy bleeding and Denies lymphadenopathy Aller/Immun Denies lip swelling, Denies tongue swelling and Denies wheezing Physical Exam Vital Signs: Last Vital Signs Pulse 73 11/01/24 11:35 BP 120/72 11/01/24 11:35 Pulse Ox 95 11/01/24 11:35 Oxygen Delivery Method Room Air 11/01/24 11:35 Const General: alert HEENT Head: Yes scalp lesion Neck Neck: Yes normal visual inspection, Yes full ROM and Yes no lymphadenopathy Chest Chest palpation & inspection: normal inspection of the chest Resp Effort & Inspection: normal respiratory effort and No prolonged expiratory phase Auscultation: clear to auscultation bilaterally and no wheezes Cardio Rate: tachycardic Rhythm: regular rhythm Heart sounds: S1 normal heart sound present and S2 normal heart sound present GI Palpation (GI): Soft to palpation and nontender Auscultation: normal bowel sounds Skin General skin exam: rashes and/or lesions noted Extrem General: Yes edema Assessment & Plan Assessment & Plan (1) Asthma: Code(s): J45.909 - Unspecified asthma, uncomplicated Category: Medical Qualifiers: Asthma complication type: uncomplicated Asthma persistence: persistent Asthma severity: severe Qualified Code(s): J45.50 - Severe persistent asthma, uncomplicated (2) Coronary artery calcification: Code(s): I25.10 - Atherosclerotic heart disease of [place] coronary artery without angina pectoris; I25.84 - Coronary atherosclerosis due to calcified coronary lesion Category: Medical (3) Pulmonary nodules: Code(s): R91.8 - Other nonspecific abnormal finding of lung field Category: Medical (4) Radiation fibrosis of lung: Code(s): J70.1 - Chronic and other pulmonary manifestations due to radiation Category: Medical (5) Asthma-COPD overlap syndrome: Code(s): J44.9 - Chronic obstructive pulmonary disease, unspecified Category: Medical (6) Brain cancer: Code(s): C71.9 - Malignant neoplasm of brain, unspecified Category: Medical Qualifiers: Malignant neoplasm of brain location: unspecified location Qualified Code(s): C71.9 - Malignant neoplasm of brain, unspecified Plan continue Wixela and Spiriva continue Daliresp 500mcg continue Fasenra FACUNDO as needed Continue Singulair diuresis as tolerated F/U 10-12 months Coding Level of Care Code Est Pt Level 4 (56202) Diagnoses Severe persistent asthma without complication J45.50 Asthma complication type: uncomplicated Asthma persistence: persistent Asthma severity: severe Coronary artery calcification I25.10; I25.84 Pulmonary nodules R91.8 Radiation fibrosis of lung J70.1 Asthma-COPD overlap syndrome J44.9 Malignant neoplasm of brain, unspecified location C71.9 Malignant neoplasm of brain location: unspecified location Time Spent (min) 16
--- OUTSIDE RECORDS SUMMARY | 2024-11-01 14:08 | XMS_ITS | Clinical Summary ---
Author Organization [facility] Address [address] [place] [address] Phone Care Team Providers Care Busser Name Role Phone Madi Brown MD Primary Care Provider [phone] Allergies Active Allergy Reactions Criticality Noted Date Comments Cephalexin Itching 10/06/2016 Formaldehyde Anaphylaxis High 10/06/2016 Levofloxacin Pain 10/06/2016 Other 04/12/2018 Luis - throat swelling Perfume - respiratory distress Sulfamethoxazole-Trimethop rim Hives 10/06/2016 Tuberculin, Purified Protein Derivative Swelling 04/12/2018 Medications aspirin 81 mg EC tablet Take by mouth. Activ e azelastine (ASTELIN) 137 mcg (0.1 %) nasal spray 2 Sprays by Each Nare route 2 times daily. Use in each nostril as directed Active benralizumab (Fasenra) 30 mg/mL syringe Inject into the skin. Active brinzolamide (AZOPT) 1 % ophthalmic suspension 1 Drop 3 times daily. Active diclofenac (VOLTAREN) 75 mg EC tablet Take 75 mg by mouth 2 times daily. Active fluticasone propion-salmete roL (ADVAIR DISKUS) 100-50 mcg/dose diskus inhaler 1 inhalation by Inhaled route every 12 (twelve) hours. Active furosemide (LASIX) 40 mg tablet Take 1 tablet (40 mg total) by mouth every other day. 12/20/19 24 Active montelukast (SINGULAIR) 10 mg tablet Route: Take 1 Tab by mouth at bedtime for 90 days. - Oral 08/11/19 19 Active ROFLUMILAST ORAL Take by mouth. Pt unsure of dose . Active tiotropium (SPIRIVA) 18 mcg per inhalation capsule Inhale 1 Cap into the lungs daily for 90 days. 12/13/19 19 Active DULoxetine (CYMBALTA) [address] capsule Take 1 capsule (60 mg total) by mouth 1 (one) time each day. Do not crush or chew. 90 capsule 1 07/31/20 24 Active metoprolol succinate (TOPROL-XL) 50 mg 24 hr tablet Take 1 tablet (50 mg total) by mouth 1 (one) time each day. Do not crush or chew. Route: Take 1 Tablet by mouth daily for 180 days. - Oral 30 tablet 5 07/31/20 24 025 Active losartan (COZAAR) 50 mg tablet TAKE 1 TABLET BY MOUTH DAILY 90 tablet 1 08/21/19 25 Active gabapentin (NEURONTIN) 300 mg capsule Take 3 capsules (900 mg total) by mouth 2 (two) times a day. 540 capsule 1 08/30/19 25 Active lansoprazole (PREVACID) [address] capsule TAKE 1 CAPSULE BY MOUTH DAILY (DO NOT CRUSH OR CHEW) 90 capsule 1 09/13/19 25 Active traZODone (DESYREL) 100 mg tablet TAKE 1 TABLET BY MOUTH AT BEDTIME 90 tablet 09/14/19 25 Active dorzolamide-karmen olol, PF, 2-0.5 % dropperette 09/25/19 25 Active tafluprost, PF, 0.0015 % dropperette 09/14/19 25 Active Advair HFA 230-21 mcg/actuation inhaler 09/18/19 25 Active roflumilast (DALIRESP) 500 mcg tablet 09/25/19 25 Active lovastatin (MEVACOR) 40 mg tablet TAKE 1 TABLET BY MOUTH AT BEDTIME 90 tablet 10/17/19 25 Active lovastatin (MEVACOR) 40 mg tablet Take 1 tablet (40 mg total) by mouth at bedtime. at bedtime. 30 tablet 1 07/31/20 24 025 Discontinued Active Problems Problem Noted Date Diagnosed Date Morbid obesity with BMI of 40.0-44.9, adult 10/0 08/2023 Severe obesity (BMI 35.0-35.9 with comorbidity) 05/02/2024 CHF (congestive heart failure) 02/25/2022 Assessment & Plan (08/29/2024 3:13 PM EST): Orders: ECG 12 lead Transthoracic echocardiogram (TTE) complete with PRN contrast, bubble, strain, and 3D order panel; Future Heart failure with preserved ejection fraction 0 01/05/2022 Osteopenia 11/28/2020 Lumbosacral radiculopathy 03/27/2019 Allergic rhinitis 02/09/2019 Odynophagia 02/09/2019 Overview (05/02/2024): Sees gi, to use ppi bid and have endoscopy 2018 Post-nasal drip 02/09/2019 Seasonal allergies 02/09/2019 Axillary lymphadenopathy 08/08/2018 Diverticulosis of colon 04/12/2018 Hepatomegaly 04/12/2018 Insomnia 04/12/2018 Macular degeneration 04/12/2018 Multilevel degenerative disc disease 04/12/2018 Overview (05/02/2024): T 11-12, T 12 - L1, L 3-4, L 4-5 Osteoarthritis of multiple joints 04/12/2018 Overview (05/02/2024): Knees, hands. Shoulders, feet Renal calculus, bilateral 04/12/2018 Lumbar spinal stenosis 12/02/2017 Overview (05/02/2024): Sees Dr Milner for injections, occasional tramadol Glaucoma 08/26/2017 Depression 06/06/2017 Fibromyalgia 06/06/2017 Hyperlipidemia 06/06/2017 Hypertension 06/06/2017 Assessment & Plan (08/29/2024 3:13 PM EST): Orders: Transthoracic echocardiogram (TTE) complete with PRN contrast, bubble, strain, and 3D order panel; Future Lymphedema 06/06/2017 Meningioma 06/06/2017 Cancer Staging:Clinical stage from 12/15/2023:WHO G4- Signed by Americo Disla MD on 08/07/2024 Overview (09/27/2024): 3 sites, Gamma knife, Sees Dr Galan annually Last Assessment & Plan: Mily is still suffering with some headache and mild nausea but admits that all of this is improving with time. She seems depressed but is otherwise awake and alert neuro intact. Pathology revealed a malignant meningioma. We did talk about prognosis including 5 and 10-year survival rates. Jase and sutures were removed and the skin seems to be healing nicely. There is a little bit of fluid and Dr. Tran did tell her that she could use an ice pack. We also let her know that she could resume taking diclofenac. She will have an appointment with radiation oncology hopefully next week and can have radiation anytime after Wednesday. She will follow-up in approximately 3 months or sooner if there are any issues. 3 sites, Gamma knife, Sees Dr Galan annually Last Assessment & Plan: Ms. Montanez is here for second postop visit since resection of a large occipital scalp mass that have eroded through the calvarium requiring a large resection and cranioplasty. 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 We contacted Dr. Mondragon here at [facility] who felt that those 2 options were not mutually exclusive as a dedifferentiated meningioma could look similar. In either case, the patient has now received the maximum supplemental dose of XRT since his region was radiated in the past. There is no option for chemotherapy so the plan is for continued observation. She is slowly getting stronger, the scalp sensitivity is diminishing but she does have episodes of dizziness and vertigo. This often occurs if she is turning her head to either left or right though she thinks she tends to veer to the right more often. She carries a cane for safety and denies falling. We discussed that there were not any findings on her MRIs in the CP angle that would cause this, it is most likely positional vertigo. On exam, her incision is well-healed with a flattened vertex where she has underlying mesh. The skin is slightly pink and postradiation but intact. She is alert and oriented, rises from the chair independently, gait is slow and steady with cane for safety. There is no focal weakness. The plan is to continue surveillance imaging and the recommendation from radiation oncology here is for her next study of 3 months since her radiation treatment. We will coordinate with their office. GERD (gastroesophageal reflux disease) 7 Asthma 12/02/2016 Encounters Date Type Department Care Team Description 10/03/2024 11:00 AM EST - 10/03/2024 11:59 PM EST Hospital Encounter [facility] Radiation Oncology [address] [place] [phone] Shan Dumont MD Meningioma (CMS/HCC) (Primary Dx); Meningioma, malignant (CMS/HCC) Discharge Disposition: Home or Self Care 09/26/2024 9:55 AM EST - 09/26/2024 11:59 PM EST Hospital Encounter [facility] MRI [address] [place] [phone] Meningioma, malignant (CMS/HCC) Discharge Disposition: Home or Self Care 09/08/2024 Telephone [facility] Radiation Oncology [address] [place] [phone] Shannan Manjarrez [place] 08/29/2024 2:30 PM EST Office Visit [facility] - [facility] [address] [facility] [address] [place] [address] Kt Barron MD Chronic heart failure with preserved ejection fraction (CMS/HCC) (Primary Dx); Primary hypertension 08/07/2024 2:00 PM EST - 08/07/2024 11:59 PM EST Hospital Encounter [facility] Radiation Oncology [address] [place] [phone] Americo Disla MD Meningioma (CMS/HCC) (Primary Dx) Discharge Disposition: Home or Self Care 08/07/2024 1:30 PM EST Office Visit [facility] Hematology Oncology [address] [place] [phone] Ghislaine Grubbs DO Undifferentiated pleomorphic sarcoma (CMS/HCC) (Primary Dx); Complex sclerosing lesion of left breast; Breast lesion; Family history of breast cancer; Family history of cancer from Last 3 Months Immunizations Name Administration Dates Next Due Influenza trivalent, 0.5mL ( Fluzone High-dose) 65yo and older 05/12/2018,05/05/2017 Influenza trivalent, with pr eservative (Fluzone; Afluria) 6mo and older 06/05/2020 Influenza, Unspecified 06/22/2023 [employer] SARS-CoV-2 COVID-19, mRNA, LNP-S, preservative free 07/10/2023,04/17/2022 Pneumococcal conjugate 13 va lent (Prevnar 13, PCV13) 2mo and older 09/18/2014 Pneumococcal polysaccharide 23 valent (Pneumovax 23) 2yo and older 08/08/2018,07/11/2007 Tdap Tetanus diptheria acell ular pertussis (Boostrix; Adacel) 7yo and older 09/22/2016 Zoster Live 06/12/2014 Zoster recombinant (Shingrix) 19yo and older 01/2021 Surgical History Surgery Date Site/Laterality Comments BREAST LUMPECTOMY PROCEDURE:BREAST LUMPECTOMY MASTECTOMY PROCEDURE:MASTECTOMY TUBAL LIGATION PROCEDURE:TUBAL LIGATION CERVICAL FUSION PROCEDURE:CERVICAL FUSION Medical History Medical History Date Comments Breast cancer DX:Breast cancer (HCC) Social History Tobacco Use Types Packs/Day Years Used Date Smoking Tobacco: Former Smokeless Tobacco: Never Tobacco Cessation:Counseling Given: Not Answered Alcohol Use Standard Drinks/Week Comments Yes 0 (1 standard drink = 0.6 oz pur e alcohol) Comments No Sex and Gender Information Value Date Recorded Sex Assigned at Female 08/30/2024 12:46 PM EST Legal Sex Female 7:57 PM EST Gender Identity Female 08/30/2024 12:46 PM EST Sexual Orientation Straight 08/30/2024 12 :46 PM EST Obstetrics History Last Filed Vital Signs Vital Sign Reading Time Taken Comments Blood Pressure 124/65 10/03/2024 11:22 AM EST Pulse 89 10/03/2024 11:22 AM EST Temperature 36.7 ??C (98 ??F) 08/07/2024 1:40 PM EST Respiratory Rate - - Oxygen Saturation 100% 10/03/2024 11:22 AM EST Inhaled Oxygen Concentration - - Weight 75.3 kg (166 lb) 09/26/2024 10:45 AM EST Height 152.4 cm (5') 08/07/2024 1:40 PM EST Body Mass Index 32.42 08/07/2024 1:40 PM EST Plan of Treatment Upcoming Encounters Date Type Department Care Team (Late st Contact Info) Description 11/06/2024 2:00 PM EDT Office Visit [facility] Hematology Oncology [address] [place] [phone] Ghislaine Grubbs DO [address] [place] [address] 11/08/2024 11:00 AM EDT Ancillary Procedure [facility] - [facility] [address] [facility] [address] [place] [phone] 12/06/2024 1:15 PM EDT [facility] [address] [phone] Madi Brown MD [address] [place] [address] 02/26/2025 10:50 AM EDT Office Visit [facility] - [facility] [address] [facility] [address] [place] [phone] Kt Barron MD [address] [facility] [address] [place] [address] 03/13/2025 11:00 AM EDT Appointment [facility] Radiation Oncology [address] [facility] 2nd [place] [phone] Destiny Tello NP [address] [place] [address] Health Maintenance Due Date Last Done Comments RSV Immunization Adult Patients (1 - Risk 60-74 years 1-dose series) 2012 Medicare Annual Wellness Visit 07/09/2022 Social Influencers of Health Screening 07/09/2022 Depression Screening 09/03/2024 09/03/2023 Falls Risk Assessment 09/03/2024 09/03/2023 Hypertension/CHF/CAD Annual BMP Blood Test 06/07/2025 06/07/2024, 12/07/2023, 12/07/2023 Cholesterol Screening (Lipid Panel) 12/06/2028 12/07/2023, 12/07/2023 Colorectal Cancer Screening: Colonoscopy 03/31/2029 03/31/2019 Osteoporosis Screening (Bone Density Screening) 10/01/2030 10/01/2020 DTaP,Tdap,and Td Vaccines (4 - Td or Tdap) 08/26/2031 08/26/2021, 08/26/2021, 09/22/2016 Hepatitis C Screening Completed 02/25/2015 Pneumococcal Vaccine: 50+ Years Completed 08/08/2018, 09/18/2014, 07/11/2007 Zoster Vaccines Completed 12/07/2020, 01/2021, 06/12/2014 COVID-19 Vaccine Completed 05/31/2024, 06/2023, 07/10/2023, Additional history exists Influenza Vaccine Completed 06/14/2024, , 06/22/2023, Additional history exists HIB Vaccines Aged Out No longer eligi ble based on patient's age to complete this topic HPV Vaccines Aged Out No longer eligi ble based on patient's age to complete this topic Hepatitis A Vaccines Aged Out No long er eligible based on patient's age to complete this topic Hepatitis B Vaccines Aged Out No long er eligible based on patient's age to complete this topic IPV Vaccines Aged Out No longer eligi ble based on patient's age to complete this topic MMR Vaccines Aged Out No longer eligi ble based on patient's age to complete this topic Meningococcal ACWY Vaccine Aged Out N o longer eligible based on patient's age to complete this topic Meningococcal B Vacine Aged Out No lo nger eligible based on patient's age to complete this topic RSV Immunization Patients Under 20 months Aged Out No longer eligible based on patient's age to complete this topic Varicella Vaccines Aged Out No longer eligible based on patient's age to complete this topic Procedures Procedure Name Priority Date/Time Associated Diagnosis Comments MR BRAIN WO AND W CONTRAST Routine 09/26/2024 12:26 PM EST Meningioma, malignant (CMS/HCC) ECG 12-LEAD Routine 08/29/2024 2:36 PM EST Chronic heart failure with preserved ejection fraction (CMS/HCC) DIABETES EYE EXAM 08/29/2024 COMPREHENSIVE METABOLIC PANEL Routine 06/07/2024 2:16 PM EST Primary hypertension LIPID PANEL Routine 12/07/2023 DEPRESSION SCREENING Routine 09/03/2023 FALLS RISK ASSESSMENT Routine 09/03/2023 [facility] DEXA AXIAL SKELETON Routine 10/01/2020 3:07 PM EST Asymptomatic menopausal state COLONOSCOPY Routine 03/31/2019 HEPATITIS C SCREENING Routine 02/25/2015 from Last 3 Months or Most Recently Relevant to Health Maintenance Results * MR Brain wo and w Contrast (09/26/2024 12:26 PM EST) Anatomical Region Laterality Modality Head and Neck Magnetic Resonan ce 09/26/2024 1:06 PM EST Impressions 09/26/2024 1:09 PM EST Stable exam. ??No evidence of tumor progression -------- FINAL REPORT -------- Dictated By: YAYA DONALD Dictated Date: 09/26/2024 13:06 ET Assigned Physician: YAYA DONALD Reviewed and Electronically Signed By: YAYA DONALD Signed Date: 09/26/2024 13:09 ET Workstation ID: [id number] Transcribed By: Self Edit Transcribed Date: 09/26/2024 13:06 ET Narrative 09/26/2024 1:09 PM EST PROCEDURE: Brain MRI INDICATION: Meningioma/sarcoma TECHNIQUE: Multiplanar, multisequence MRI of the brain without and with contrast. ??15 mL Dotarem injected intravenously without complication from a 15 mL vial. COMPARISON: ??06/13/2024. FINDINGS: No acute infarct, mass effect, or intracranial hemorrhage. Extra-axial enhancing mass along the right frontal convexity is stable measuring 14 mm as compared to 14 mm prior. ??No significant mass effect upon adjacent brain parenchyma. Brain parenchyma is within normal limits and similar compared to prior. ??No new abnormal intracranial enhancement or susceptibility artifact. Ventricles, sulci, and cisterns are stable in size and configuration. ??No hydrocephalus. Major intracranial arterial flow voids are normal. Major dural venous sinuses are similar compared to prior with decreased enhancement in the posterior aspect of the superior sagittal sinus, likely related to prior surgery. ??Ill-defined enhancing tissue deep to the posterior cranioplasty and along the superior sagittal sinus is unchanged and most likely related to postoperative granulation tissue. ??No new or increasing nodular enhancing tumor. Sella and foramen magnum are normal. Sinuses are clear. ??Trace left mastoid fluid. Bilateral lens implants. ??Extra cranial soft tissues are normal. ??Posterior cranioplasty is unchanged. ??No marrow replacing lesions throughout the bones. Procedure Note Yaya Donald MD - 09/26/2024 PROCEDURE: Brain MRI INDICATION: Meningioma/sarcoma TECHNIQUE: Multiplanar, multisequence MRI of the brain without and withcontrast. 15 mL Dotarem injected intravenously without complication froma 15 mL vial. COMPARISON: 06/13/2024. FINDINGS: No acute infarct, mass effect, or intracranial hemorrhage. Extra-axial enhancing mass along the right frontal convexity is stablemeasuring 14 mm as compared to 14 mm prior. No significant mass effectupon adjacent brain parenchyma. Brain parenchyma is within normal limits and similar compared to prior.No new abnormal intracranial enhancement or susceptibility artifact. Ventricles, sulci, and cisterns are stable in size and configuration. Nohydrocephalus. Major intracranial arterial flow voids are normal. Major dural venous sinuses are similar compared to prior with decreasedenhancement in the posterior aspect of the superior sagittal sinus, likelyrelated to prior surgery. Ill-defined enhancing tissue deep to theposterior cranioplasty and along the superior sagittal sinus is unchangedand most likely related to postoperative granulation tissue. No new orincreasing nodular enhancing tumor. Sella and foramen magnum are normal. Sinuses are clear. Trace left mastoid fluid. Bilateral lens implants. Extra cranial soft tissues are normal.Posterior cranioplasty is unchanged. No marrow replacing lesionsthroughout the bones. IMPRESSION: Stable exam. No evidence of tumor progression -------- FINAL REPORT -------- Dictated By: YAYA DONALD Dictated Date: 09/26/2024 13:06 ET Assigned Physician: YAYA DONALD Reviewed and Electronically Signed By: YAYA DONALD Signed Date: 09/26/2024 13:09 ET Workstation ID: [id number] Transcribed By: Self Edit Transcribed Date: 09/26/2024 13:06 ET Americo Disla MD IMG MRI PROCEDURES Final Result * ECG 12 lead (08/29/2024 2:36 PM EST) [facility] Ventricular Rate ECG 72 BPM GEMUSE Atrial Rate 72 BPM GEMUSE P-R Interval 162 ms GEMUSE QRS Duration 86 ms GEMUSE Q-T Interval 398 ms GEMUSE QTc 435 ms GEMUSE P Wave [place] 49 degrees GEMUSE R [place] 14 degrees GEMUSE T [place] 60 degrees GEMUSE ECG Interpretation Normal sinus rhythm Normal ECG When compared with ECG of 04-FEB-2024 12:11, Vent. rate has decreased BY ??38 BPM Confirmed by MD Anderson, Kt ([id number]) on 08/29/2024 3:21:17 PM GEMUSE 08/29/2024 2:36 PM EST 08/29/2024 3:21 PM EST Kt Barron MD ECG ORDERABLES Final Res ult GEMUSE * Diabetes Eye Exam (08/29/2024) Provider [facility] HEALTH MAINTENANCE Final Result * (ABNORMAL) Comprehensive metabolic panel (06/07/2024 2:16 PM EST) [facility] Sodium 143 133 - 145 mmol/L LAB CHEMISTRY METHOD 06/07/2024 7:08 PM EST [facility] Potassium 3.9 3.5 - 5.5 mmol/L LAB CHEMISTRY METHOD 06/07/2024 7:08 PM [facility] Chloride 110 96 - 110 mmol/L LAB CHEMISTRY METHOD 06/07/2024 7:08 PM [facility] CO2 27 21 - 32 mmol/L LAB CHEMISTRY METHOD 06/07/2024 7:08 PM [facility] Anion Gap 6 3 - 11 LAB CHEMISTRY METHOD 06/07/2024 7:08 PM [facility] Glucose 90 70 - 100 mg/dL LAB CHEMISTRY METHOD 06/07/2024 7:08 PM [facility] BUN 18 5 - 25 mg/dL LAB CHEMISTRY METHOD 06/07/2024 7:08 PM [facility] Creatinine 0.81 0.50 - 1.10 mg/dL LAB CHEMISTRY METHOD 06/07/2024 7:08 PM [facility] eGFR 77 >=60 mL/min/1. 73m2 LAB CHEMISTRY METHOD 06/07/2024 7:08 PM [facility] Comment:Calculation based on the??Chronic Kidney Disease Epidemiology Collaboration (CKD-EPI) equation refit??without adjustment for race. BUN/Creatinine Ratio 22.2 LAB CHEMISTRY METHOD 06/07/2024 7:08 PM [facility] Calcium 9.0 8.5 - 10.5 mg/dL LAB CHEMISTRY METHOD 06/07/2024 7:08 PM [facility] AST (SGOT) 16 10 - 42 unit/L LAB CHEMISTRY METHOD 06/07/2024 7:08 PM [facility] ALT (SGPT) 20 10 - 60 unit/L LAB CHEMISTRY METHOD 06/07/2024 7:08 PM [facility] Alkaline Phosphatase 115 42 - 121 unit/L LAB CHEMISTRY METHOD 06/07/2024 7:08 PM [facility] Total Protein 5.6(L) 6.0 - 8.0 g/dL LAB CHEMISTRY METHOD 06/07/2024 7:08 PM [facility] Albumin 3.2 3.2 - 5.0 g/dL LAB CHEMISTRY METHOD 06/07/2024 7:08 PM EST [facility] Total Bilirubin 0.4 0.0 - 1.4 mg/dL LAB CHEMISTRY METHOD 06/07/2024 7:08 PM EST [facility] Blood Venous blood specimen / Unknown Venipuncture / Unknown 06/07/2024 2:16 PM EST 06/07/2024 2:16 PM EST Madi Brown MD LAB BLOOD ORDERABLES Final Resu lt [facility] [address] [place] [address], * Lipid panel (12/07/2023) Pathologist [facility] LDL/HDL Ratio 4 0 - 4 Triglycerides 112 0 - 150 mg/dL Cholesterol 156 0 - 200 mg/dL HDL 44 >=40 mg/dL LDL Cholesterol 90 0 - 100 mg/dL Blood Venous blood specimen / Unknown Robin Mcgrath MD LAB BLOOD ORDERABLES Berta l Result * Falls Risk Assessment (09/03/2023) Pathologist [facility] Falls Risk Assessment Abstracted Historical Provider HEALTH MAINTENANCE Final Result * Depression Screening (09/03/2023) Pathologist [facility] Depression Screening Abstracted Historical Provider HEALTH MAINTENANCE Final Result * [facility] DEXA AXIAL SKELETON (10/01/2020 3:07 PM EST) Anatomical Region Laterality Modality Mammography 10/01/2020 11:3 4 AM EST Narrative 10/01/2020 3:07 PM EST [facility] Department [address] [place] [address] Patient: ??CHRISTY MONTANEZ ?/Age/Sex: 1950 70 - F Unit#: ??[id number] ? Location/Status: ??SPDIMAM/REG CLI ? Mnemonic/Ordering Site: ??MAMDEXAAX/SPMAM Ordering Physician: ??LIBIA-KM KAPADIA MD [facility] Dexa Axial Skeleton - 10/01/201157 HISTORY: ??The patient is a 70-year-old postmenopausal female on chronic glucocorticoid therapy, with clinical concern for metabolic bone disease. FINDINGS: ??Dual energy x-ray absorptiometry of the lumbar spine and femurs is performed. The mean bone mineral density at L2-3 is 1.114 gm/cm2 which is 93% of that of young normals and 99% of that of age matched controls. This yields a T- score of -0.7 and a Z-score of -0.1 and there is therefore no evidence of osteoporosis or osteopenia here. The mean bone mineral density of the femurs bilaterally is 1.004 gm/cm2 which is 100% of that of young normals and 108% of that of age matched controls. ??This yields a T-score of 0.0 and a Z-score of 0.6 and there is therefore no evidence of osteoporosis or osteopenia here. ??However, the T-score of the right femoral neck is -1.9 and that of the left femoral neck is -1.5 which is diagnostic of osteopenia. IMPRESSION: 1. Osteopenia. ??There has been an increase of 7.8% in bone mineral density in the lumbar spine since the prior examination of 02/05/2009. ??There has been a decrease of 4.8% in bone mineral density in the right femur and a decrease of 4.7% in bone mineral density in the left femur. 2. FRAX analysis yields a 10-year probability of major osteoporotic fracture of 15.6% and a 10-year probability of hip fracture of 2.8%. Code [id number] Dictating Physician: ??IVON GARAY MD Electronically Signed by: ??IVON GARAY MD Dic Date/Time: ??10/01/20 1504 Sign date/Time: ??10/01/20 1507 Procedure Note Ivon Garay MD - 07/21/2022 [facility] Diagnostic Imaging Department [address] [place] [address] Patient: JOSE MONTANEZRA /Age/Sex: 1950 Unit#: [id number] Location/Status: [facility] Mnemonic/Ordering Site: [facility] Ordering Physician: KM KITCHEN MD [facility] Dexa Axial Skeleton - 10/01/20 - 2916 HISTORY: The patient is a 70-year-old postmenopausal female on chronic glucocorticoid therapy, with clinical concern for metabolic bonedisease. FINDINGS: Dual energy x-ray absorptiometry of the lumbar spine and femursis performed. The mean bone mineral density at L2-3 is 1.114 gm/cm2 which is93% of that of young normals and 99% of that of age matched controls. This yieldsa T- score of -0.7 and a Z-score of -0.1 and there is therefore no evidenceof osteoporosis or osteopenia here. The mean bone mineral density of the femurs bilaterally is 1.004 gm/ul9scfwi is 100% of that of young normals and 108% of that of age matched controls.This yields a T-score of 0.0 and a Z-score of 0.6 and there is therefore noevidence of osteoporosis or osteopenia here. However, the T-score of the rightfemoral neck is -1.9 and that of the left femoral neck is -1.5 which is diagnosticof osteopenia. IMPRESSION: 1. Osteopenia. There has been an increase of 7.8% in bone mineral densityin the lumbar spine since the prior examination of 02/05/2009. There has gisel decrease of 4.8% in bone mineral density in the right femur and a decreaseof 4.7% in bone mineral density in the left femur. 2. FRAX analysis yields a 10-year probability of major osteoporoticfracture of 15.6% and a 10-year probability of hip fracture of 2.8%. Code [id number] Dictating Physician: IVON GARAY MD Electronically Signed by: IVON GARAY MD Dic Date/Time: 10/01/20 1504 Sign date/Time: 10/01/20 1507 Km Kitchen MD IMG BI PROCEDURES Fi nal Result * Colonoscopy (03/31/2019) [facility] Colonoscopy No interpretation , Abstracted Anatomical Region Laterality Modality Other Historical Provider HEALTH MAINTENANCE Final Result * Hepatitis C Screening (02/25/2015) [facility] Hepatitis C Screening Abstracted Historical Provider HEALTH MAINTENANCE Final Result from Last 3 Months or Most Recently Relevant to Health Maintenance Insurance MEDICARE [facility] Advance Directives Documents on File Type Date Recorded 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 Health Care Decision (hx) 12/01/2021 AD GUADALUPE DIRECTIVE Health Care Decision (hx) 12/01/2021 AD GUADALUPE DIRECTIVE Health Care Decision (hx) 12/01/2021 AD GUADALUPE DIRECTIVE Health Care Decision (hx) 12/01/2021 AD GUADALUPE DIRECTIVE Health Care Decision (hx) 12/01/2021 AD GUADALUPE DIRECTIVE Health Care Decision (hx) 12/01/2021 AD GUADALUPE DIRECTIVE Health Care Decision (hx) 12/01/2021 AD GUADALUPE DIRECTIVE Health Care Decision (hx) 12/01/2021 AD GUADALUPE DIRECTIVE Health Care Decision (hx) 12/01/2021 AD GUADALUPE DIRECTIVE Health Care Decision (hx) 12/01/2021 AD GUADALUPE DIRECTIVE Health Care Decision (hx) 12/01/2021 AD GUADALUPE DIRECTIVE Health Care Decision (hx) 12/01/2021 AD GUADALUPE DIRECTIVE Health Care Decision (hx) 12/01/2021 AD GUADALUPE DIRECTIVE Health Care Decision (hx) 12/01/2021 AD GUADALUPE DIRECTIVE Health Care Decision (hx) 12/01/2021 AD GUADALUPE DIRECTIVE Health Care Decision (hx) 12/01/2021 AD GUADALUPE DIRECTIVE Health Care Decision (hx) 12/01/2021 AD GUADALUPE DIRECTIVE Health Care Decision (hx) 12/01/2021 AD GUADALUPE DIRECTIVE Health Care Decision (hx) 12/01/2021 AD GUADALUPE DIRECTIVE Health Care Decision (hx) 12/01/2021 AD GUADALUPE DIRECTIVE Care Teams Busser Relationship Specialty Start Date End Date Madi Brwon MD [address] [place] [phone] PCP - General Internal Medicine 07/22/21
--- OUTSIDE RECORDS SUMMARY | 2024-11-01 14:08 | XMS_ITS | Patient Health Record ---
Author Organization [facility] Address [address] [place] [address] [id number] Care Team Providers Care Housekeeping/Laundry Name Role Phone Gloria CREWS, Rosalee Primary Care Provider Last CREWS, Ayaan Eller [phone] Reason For Referral No Information Plan Of Treatment No Information
--- OUTSIDE RECORDS SUMMARY | 2024-11-01 14:08 | XMS_ITS | Clinical Summary ---
Author Organization [facility] Address [address] [place] [address] Care Team Providers Care Boiling Off Winder Name Role Phone Madi Brown MD Primary Care Provider [phone] Allergies Active Allergy Reactions Criticality Noted Date Comments Cephalexin 04/06/2017 Medications Medication Sig Dispensed Refills Start Date End Date Status aspirin EC 81 MG tablet Take 81 mg by mouth daily. 0 Active Multiple Vitamins-Minerals (PRESERVISION AREDS PO) Take by mouth. 0 Active gabapentin (NEURONTIN) 300 MG capsule Take 300 mg by mouth 3 (three) times a day. 0 Active diclofenac (VOLTAREN) 75 MG EC tablet Take 75 mg by mouth 2 (two) times a day. 0 Active hydroCHLOROthiazide (HYDRODIURIL) tablet 25 mg Take 2 tablets (50 mg total) by mouth daily. 0 Active lisinopril (PRINIVIL,ZESTRIL) tablet 20 mg Take 1 tablet (20 mg total) by mouth daily. 0 Active montelukast (SINGULAIR) 10 MG tablet Take 10 mg by mouth every night at bedtime. 0 Active DULoxtetine (CYMBALTA) DR capsule 60 mg Take 60 mg by mouth daily. 0 Active lansoprazole (PREVACID) 30 MG capsule Take 30 mg by mouth daily. 0 Active traZODone (DESYREL) 50 MG tablet Take 2 tablets (100 mg total) by mouth every night at bedtime. 0 Active tiotropium (SPIRIVA HANDIHALER) [address] 18 mcg into inhaler and inhale daily. 0 Active fluticasone-salmeter ol (ADVAIR DISKUS) 100-50 MCG/DOSE DISKUS 1 inhalation by Inhaled route every 12 (twelve) hours. 0 Active losartan (COZAAR) tablet 25 mg Take 1 tablet (25 mg total) by mouth daily. 0 Active lovastatin (MEVACOR) 40 MG tablet Take 1 tablet (40 mg total) by mouth every night at bedtime. 0 Active losartan (COZAAR) tablet 50 mg Take 1 tablet (50 mg total) by mouth daily. 0 Active clindamycin (CLEOCIN) 300 MG capsule Take 1 capsule (300 mg total) by mouth 3 (three) times a day. 0 Active Active Problems Problem Noted Date Diagnosed Date Malignant neoplasm of centra l portion of breast in female, estrogen receptor positive 05/05/2017 Social History Tobacco Use Types Packs/Day Years Used Date Smoking Tobacco: Former Smokeless Tobacco: Never Alcohol Use Standard Drinks/Week Comments Yes 0 (1 standard drink = 0.6 oz pur e alcohol) occasional Sex and Gender Information Value Date Recorded Sex Assigned at Female 01/25/2024 9:46 AM EDT Gender Identity Not on file Sexual Orientation Not on file Job Start Date Occupation Industry Not on file Not on file Not on file Last Filed Vital Signs Vital Sign Reading Time Taken Comments Blood Pressure 141/53 03/06/2024 11:01 AM EDT Pulse 85 03/06/2024 11:01 AM EDT Temperature 36.7 ??C (98 ??F) 04/17/2024 10:05 AM EDT Respiratory Rate - - Oxygen Saturation 99% 04/17/2024 10:05 AM EDT Inhaled Oxygen Concentration - - Weight 73.2 kg (161 lb 6.4 oz) 04/17/2024 10:05 AM EDT Height 151.1 cm (4' 11.5 ) 04/17/2024 10:05 AM E DT Body Mass Index 32.05 04/17/2024 10:05 AM EDT Plan of Treatment Health Maintenance Due Date Last Done Comments Hepatitis C Screening 1950 Depression Screening 1964 BMI Counseling 1970 Preventative Health Evaluation 1970 DTap / Tdap / Td (1 - Tdap) 1971 Colon Cancer Screening (Colonoscopy) 1997 Breast Cancer Screening (Mammogram) 2002 Fall Risk Assessment 2017 Osteoporosis Screening (DEXA Scan) 2017 Shingrix-Zoster Vaccine (2 of 2) 10/03/2020 08/08/2020 COVID-19 Vaccine ( season) 2024 07/10/2023, 04/17/2022, 10/08/2020, Additional history exists Influenza Vaccine (#1) 2024 0, 05/12/2018, 05/05/2017 RSV Adult > 60+ Yrs or (1 - 1-dose 75+ series) 2027 Pneumococcal Vaccine Completed 08/08/2018, 09/18/2014, 07/11/2007 Hepatitis B Vaccines Aged Out No long er eligible based on patient's age to complete this topic RSV Ped < 20 months Aged Out No longe r eligible based on patient's age to complete this topic Care Teams Boiling Off Winder Relationship Specialty Start Date End Date Madi Brown MD [address] [place] [phone] PCP - General Internal Medicine 02/01/24 Gabriela Castaneda MD, MPH [facility] Medical Oncology 02/08/24
--- OUTSIDE RECORDS SUMMARY | 2024-11-01 14:08 | XMS_ITS | Encounter Summary ---
Author Organization [facility] Address [address] [place] [address] Care Team Providers Care Pacs Specialist Name Role Phone Madi Brown MD Primary Care Provider [phone] Reason for Visit * Reason Comments Caris Testing Ordered Referral for 2nd op/ Clinical Trial New Start TEMODAR (temozolomid e) Encounter Details Date Type Department Care Team Description 02/07/2024 Nurse Only [facility] Oncology Services [address] [place] [address] Deann Alonso, KELLY Caris Testing Ordered; Referral for 2nd op/ Clinical Trial; New Start (TEMODAR (temozolomide)) Social History Tobacco Use Types Packs/Day Years [...] file Not on file Not on file documented as of this encounter Progress Notes * Deann Alonso RN - 02/07/2024 8:18 AM EDT Test request has been submitted for [facility] Molecular Tumor Profiling to be performed on the specimen: SP#: [id number] Brain, occipital and bone -resection 12/21/2023 ??? Test order form and clinicals submitted for processing. ??? Testing Turnaround Time on average is 21 days but may take longer. ??? Final Report will be scanned into [facility] when completed. * Deann Alonso RN - 02/07/2024 8:18 AM EDT Referral for Expert Consult - ?? OBC to DF NPC initiating consult referral. ?? Request submitted online: [email or web address] ?? Records faxed ?? Image sharing requested through Radiology Dept. ?? Pathology slides are requested directly by [facility]. ?? DF NPC sign hanger supervisor will call the patient directly to book the appt. *The Patient may call the [facility] New Patient Coordinator directly at [phone] Date Visit Type Department Provider 02/21/2024 2:45 PM REGISTRATION DF ACCESS MANAGEMENT Arrive at: [facility] DF ACCESS MANAGEMENT REGISTRAR 02/21/2024 3:30 PM CONSULT FELLOW DF NEURO ONC Arrive at: CHECK-IN AT: [facility], Floor 9 Donita Greenfield MD, PhD 02/21/2024 3:30 PM CONSULT FELLOW DF [place] [facility] Arrive at: CHECK-IN AT: [facility], Floor 9 DF Y9 CONSULT RM [id number] 02/21/2024 4:00 PM CONSULT FELLOW DF NEURO ONC Arrive at: CHECK-IN AT: [facility], Floor 9 Gabriela Castaneda MD, MPH Appointment Notes: Meningioma // Recs at [facility] documented in this encounter Plan of Treatment Not on file documented as of this encounter Visit Diagnoses Not on filedocumented in this encounter Care Teams Pacs Specialist Relationship Specialty Start Date End Date Madi Brown MD [address] [place] [phone] PCP - General Internal Medicine 02/01/24 Gabriela Castaneda MD, MPH [facility] Medical Oncology 02/08/24 documented as of this encounter
== END 2024-11-01 12:11 | disposition home or self-care (01) ==
LOC: HO.HPS 11:33
PROVIDERS: PCP Internal Medicine; Visit Provider Hospitalist
DX: J45.50 Severe persistent asthma, uncomplicated (principal); I25.10 Atherosclerotic heart disease of native coronary artery without angina pectoris; I25.84 Coronary atherosclerosis due to calcified coronary lesion; R91.8 Other nonspecific abnormal finding of lung field; J70.1 Chronic and other pulmonary manifestations due to radiation; J44.9 Chronic obstructive pulmonary disease, unspecified; C71.9 Malignant neoplasm of brain, unspecified
CPT/HCPCS: 99214

== ENCOUNTER → 2024-11-01 11:32 | Outpatient (BNVA) | payer MEDICARE, OTHER, SELFPAY | PROVIDERS: PCP Internal Medicine; Visit Provider Hospitalist | DX: J45.50 Severe persistent asthma, uncomplicated (principal); J70.1 Chronic and other pulmonary manifestations due to radiation; J44.9 Chronic obstructive pulmonary disease, unspecified; C71.9 Malignant neoplasm of brain, unspecified; I25.10 Atherosclerotic heart disease of native coronary artery without angina pectoris; I25.84 Coronary atherosclerosis due to calcified coronary lesion; R91.8 Other nonspecific abnormal finding of lung field | CPT/HCPCS: 99212 ==